=== PATIENT | female | born 1935 | race Caucasian/White ===

== ENCOUNTER 2021-07-28 10:51 | Inpatient (IN) ==
--- NOTE | 2021-07-28 11:14 | Emergency Department Note ---
Impression & Plan Acute GI bleeding, Anemia ED Provider Note NAME: MARIAM POLO AGE: 86 SEX: F : 1935 ARRIVES VIA: Ambulance INFORMANT: Patient, ED PROVIDER(S): Bob Head MD Chief Complaint: Abnormal blood work HPI: Patient does present from [facility] due to concern for abnormal blood work which is completed earlier today. Patient has a hemoglobin of 4. The patient states that she does not take any medications including blood thinners. The patient denies any falls or trauma. The patient has no abdominal pain. The patient does have mild frontal nonradiating headache but denies any recent falls numbness tingling or focal weakness. The patient denies any vomiting or rectal bleeding. The patient denies any dark stools. The patient denies any prior history of GI bleeding. Patient denies any nausea. Patient is unsure as to her Covid vaccination status. ROS: See HPI for pertinent positives and negatives. A total of 10 systems were reviewed and otherwise negative. Past medical history: See below Surgical history: See below Social history: See below Physical Exam: GENERAL: NAD, pale in appearance, non-toxic. EYE EXAM: Normal conjunctiva. PERRL, no anisocoria and EOM's grossly intact w/o pain. NECK: Supple, no nuchal rigidity, no adenopathy, non-tender. No signs of meningismus. LUNGS: Clear to auscultation. Normal chest wall mechanics. HEART: NSR, no MRG. ABDOMEN: Abdomen soft, non-tender, normo-active bowel sounds, no masses, no rebound or guarding. BACK: No CVA TTP. SKIN: No rashes and no bruising. UPPER EXTREMITIES: Upper extremities are grossly normal. Rectal: Scant heme positive stool, no bright red blood. No obvious fissures or hemorrhoids. LOWER EXTREMITIES: Grossly normal, no edema. NEURO EXAM: A&O x3, cranial nerves II-XII grossly intact, normal speech, moves all 4 extremities on command w/o issue. Differential diagnoses: Diverticulosis, AVM, coagulopathy, colitis, inflammatory bowel disease, malignancy, Kelly-Aguayo tear, esophagitis, peptic ulcer disease, variceal bleed, gastritis, epistaxis, fissure, hemorrhoids, as well as other pathologies. Course: Patient was seen and evaluated the bedside. Full history physical exam was performed. EKG interpreted by me Joann camp, rate of [address] changes, T wave inversion in lead III and aVF. Imaging Studies: See Below Cardiac monitoring: An order was placed for continuous cardiac monitoring. The monitor shows a rate of 72 with sinus rhythm. MDM: Patient did present from [facility]. Patient did not have any acute complaints but was referred here for lower hemoglobin. Patient was heme positive on exam. This is likely chronic and indolent nature given the patient's well compensated vital signs. Review of the patient's medication history she takes baby aspirin but no blood thinners. Patient was consented for blood and ordered 1 unit. I did speak with the on-call hospitalist and the patient was admitted to the medicine service. Was called by the monitor meter record clerk that there was concern the patient was in A. fib. EKG does confirm as such. Patient is otherwise asymptomatic. Critical Care: I have personally spent 42 minutes of critical care time in direct management of this patient. This includes bedside care, interpretation of diagnostic studies, and testing, discussion with consultants, patient, and family members, and other require inpatient management activities. This 42 minutes is in excess of all separately billable procedures. Past Med/Surg History Medical History GERD (gastroesophageal reflux disease) H/O: HTN (hypertension) HLD (hyperlipidemia) Surgical History No pertinent past surgical history Social History (Updated 07/28/21 @ 17:05 by Bob Head MD) Smoking Status: Former smoker Tobacco Type: Cigarettes Hx Alcohol Use: No Hx Substance Use: No Feels Safe at Home: Yes Allergies Allergies Allergy/AdvReac Type Severity Reaction Status Date / Time amlodipine Allergy Unknown Unverified 07/28/21 12:30 atorvastatin Allergy Unknown Unverified 07/28/21 12:30 codeine Allergy Unknown Unverified 07/28/21 12:30 nifedipine Allergy Unknown Unverified 07/28/21 12:30 Home Meds Home Medications Medication Instructions Recorded Confirmed aripiprazole 2 mg tablet 2 mg PO DAILY 07/28/21 07/28/21 aspirin 81 mg tablet,delayed 81 mg PO DAILY 07/28/21 07/28/21 release buspirone 10 mg tablet 10 mg PO TID 07/28/21 07/28/21 carvedilol 6.25 mg tablet 6.25 mg PO BID 07/28/21 07/28/21 citalopram 10 mg tablet 10 mg PO DAILY 07/28/21 07/28/21 cyanocobalamin (vitamin B-12) 500 500 mcg PO DAILY 07/28/21 07/28/21 mcg tablet (Vitamin B-12) furosemide 20 mg tablet 20 mg PO DAILY 07/28/21 07/28/21 isosorbide mononitrate 30 mg 30 mg PO DAILY 07/28/21 07/28/21 tablet,extended release 24 hr isosorbide mononitrate 60 mg 60 mg PO DAILY 07/28/21 07/28/21 tablet,extended release 24 hr omeprazole 20 mg capsule,delayed 20 mg PO DAILY 07/28/21 07/28/21 release quetiapine 25 mg tablet 25 mg PO HS 07/28/21 07/28/21 quetiapine 50 mg tablet 50 mg PO HS 07/28/21 07/28/21 rosuvastatin 10 mg tablet 10 mg PO HS 07/28/21 07/28/21 sennosides 8.6 mg tablet (senna) 17.2 mg PO DAILY 07/28/21 07/28/21 spironolactone 25 mg tablet 12.5 mg PO HS 07/28/21 07/28/21 Results & Data (ED) Vital Signs Vital Signs - 24 hr 07/28/21 11:00 07/28/21 11:11 07/28/21 11:48 Temperature 36.5 C Temperature Source Oral Pulse Rate [Right Finger] Pulse Rhythm [Right Finger] Respiratory Rate 18 Respiratory Effort / Characteristics Non-Labored Respiratory Depth Normal Blood Pressure [Right Arm] 122/42 L Blood Pressure Mean [Right Arm] 68 Pulse Oximetry 96 Oxygen Delivery Method Room Air Room Air Sepsis New/Unexplained Change in Mental Status No Sepsis Action Taken by Nursing No Action Required 07/28/21 12:02 Temperature Temperature Source Pulse Rate [Right Finger] 72 Pulse Rhythm [Right Finger] Regular Respiratory Rate 18 Respiratory Effort / Characteristics Non-Labored Respiratory Depth Normal Blood Pressure [Right Arm] 116/68 Blood Pressure Mean [Right Arm] 84 Pulse Oximetry 91 Oxygen Delivery Method Room Air Sepsis New/Unexplained Change in Mental Status Sepsis Action Taken by [facility] Medications Current Medication List: was personally reviewed by me Laboratory Data Attestation: I reviewed the patient's lab results. Patient's other lab results were completed earlier in the day not completed. The patient did have a hemoglobin of 4. Lab Results 07/28/21 07/28/21 07/28/21 Range/Units 04:11 11:31 11:34 PT 10.0 (9.0-12.0) Seconds INR 1.0 (0.9-1.1) APTT 23.4 (21.0-31.0) Seconds PTT Ratio 0.9 POC Stool Occult Blood Positive A (Negative) COVID-19 Eval Order SARS-CoV-2 (PCR) (Negative) Blood Type Blood Type Recheck O Positive Antibody Screen Crossmatch 07/28/21 07/28/21 07/28/21 Range/Units 11:42 11:42 11:53 PT (9.0-12.0) Seconds INR (0.9-1.1) APTT (21.0-31.0) Seconds PTT Ratio POC Stool Occult Blood (Negative) COVID-19 Eval Order Covid19 at [facility] SARS-CoV-2 (PCR) NEGATIVE (Negative) Blood Type O Positive Blood Type Recheck Antibody Screen NEGATIVE Crossmatch See Detail Administered Medications Pantoprazole Sodium 40 mg/ (Dextrose) 100 mls @ 20 mls/hr IV Q5H PETER Stop: 08/27/21 11:44 Last Admin: 07/28/21 12:50 Dose: 8 mg/hr, 20 mls/hr Documented by: [id number] Discontinued Medications Pantoprazole Sodium 80 mg/ (Dextrose) 120 mls @ 400 mls/hr IV NOW ONE Stop: 07/28/21 11:42 Last Infusion: 07/28/21 12:54 Dose: 0 mls/hr Documented by: [id number] Admin: 07/28/21 11:54 Dose: 400 mls/hr Documented by: [id number] Discharge Plan Visit Data Chief Complaint: Abnormal Labs/Diagnostic Testing ED Provider: Bob Head Discharge Problem: Acute GI bleeding, Anemia Patient Disposition: Admitted As Inpatient Discharge Instructions Interventions: ED Discharge Assessment Last Done: 07/28/21 15:00
[2021-07-28] MEDS ORDERED: SODIUM CHLORIDE 0.9% 250 ML IV PRN ×3 (11:23→19:58)
[2021-07-28] MEDS ORDERED: PANTOPRAZOLE BOLUS/DRIP 1 EA IV STA (11:25)
[2021-07-28] MEDS ORDERED: PANTOprazole 80 MG in DEXTROSE 5% 100 ML IV ONE (11:25)
[2021-07-28 12:12] LABS: Partial Thromboplastin Ratio 0.9; Partial Thromboplastin Time 23.4 Seconds (21.0-31.0)
[2021-07-28] MEDS: PANTOprazole 40 MG in DEXTROSE 5% 100 ML IV SCH ×3 (12:50→23:30)
--- NOTE | 2021-07-28 14:14 | CT Scan Report ---
CT head/brain wo con CLINICAL HISTORY: 86 years-old Female with fall. Acute head injury status post fall TECHNIQUE: Multiple axial CT images of the head were obtained without contrast. A dose lowering tech nique was utilized adhering to the principles of ALARA. COMPARISON: None. FINDINGS: No acute intracranial hemorrhage, midline shift, intracranial mass, hydrocephalus, territorial ischem ia or abnormal extra-axial collection. Age-related involutional changes. White matter hypodensities s uggestive of chronic microvascular ischemic disease. The calvarium is intact. Prior bilateral lens repair. The paranasal sinuses, mastoid air cells, and m iddle ear cavities are clear. IMPRESSION: No acute intracranial abnormality or calvarial fracture. ACT 112: Negative or not required by law. The above report was generated using voice recognition software. It may contain grammatical, syntax o r spelling errors. Electronically signed by: Srinivasan Montana M.D. 07/28/2021 2:12 PM
--- NOTE | 2021-07-28 14:34 | CT Scan Report ---
ABDOMEN AND PELVIS CT WITHOUT CONTRAST CT DOSE: 870.33 mGy.cm HISTORY: Acute generalized abdominal pain status post fall. Acute anemia. fall, anemia TECHNIQUE: Multiaxial CT images of the abdomen and pelvis were performed without contrast. A dose lo wering technique was utilized adhering to the principles of ALARA. COMPARISON STUDY: None. FINDINGS: Moderate cardiomegaly. Extensive coronary artery, mitral annular and aortic calcifications. Calcified granulomata of the lung bases. Bronchial wall thickening with bibasilar mucous plugging an d atelectasis. No pneumatosis or pneumoperitoneum. The unenhanced spleen is unremarkable with a calci fied granuloma. Unremarkable pancreas, gallbladder, adrenal glands and liver. 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 There is symmetric dilation of the urete rs and right greater than left renal pelves without vito hydronephrosis. Mild urinary bladder wall t hickening. Uterus is either atrophic or surgically absent. No adnexal mass lesions identified. No amber nopathy. Streak artifact from left hip arthroplasty limits evaluation of the pelvis. No bowel obstruction or bowel wall thickening. Moderate fecal retention. No ascites or mesenteric inf lammation. No CT evidence of acute appendicitis. Unremarkable soft tissues. There is a battery pack n oted within the right simultaneous gluteal tissues with stimulator lead extending through a right sac ral neural foramen. The lesion appears intact. No acute fracture identified. Degenerative changes of the spine, pelvis and hips. IMPRESSION: 1. No acute posttraumatic intra-abdominal or intrapelvic abnormality. 2. No bowel obstruction or bowel wall thickening. 3. Moderate fecal retention. 4. Mild symmetric dilation of the ureters is likely physiologic 5. Duplicated left renal collecting system. 6. No acute fracture. ACT 112: Negative or not required by law. The above report was generated using voice recognition software. It may contain grammatical, syntax o r spelling errors. Electronically signed by: Srinivasan Montana M.D. 07/28/2021 2:32 PM
[2021-07-28 14:43] LABS: Ferritin 2.9 ng/ml (8-388)
[2021-07-28 14:46] LABS: Reticulocyte % 2.5 % (0.5-2.0); Reticulocytes # 0.08 10^6/uL (0.02-0.10)
--- NOTE | 2021-07-28 15:49 | Gastrointestinal Consultation ---
Date of Consultation July 28, 2021 Assessment & Plan (1) Anemia: Iron deficiency anemia. Occult positive stool. No gross GI bleeding. Will try to contact family to obtain consent for EGD tomorrow. Agree with fluids/blood transfusions, PPI drip. Please keep NPO except clears today and NPO after midnight. Plan for EGD tomorrow. Supervising Physician Co-Signing Physician Notes Attg add: No overt events, responded appropriately to transfusion.. No need PPI gtt in absence of gross bleeding. Plan EGD tomorrow. History of Present Illness Reason for Consultation: Anemia Requesting Physician: Dr. Craig Attending Physician: Dr. Craig History of Present Illness Ms. Barbara Dumont is an 86 yr old female resident of the [facility] who was brought to [facility] ED today because OP labs showed a Hb of 4. She has had recent falls. At home she is on Omeprazole 20mg daily. She is on ASA 81mg daily but no on any other anticoagulants or antiplatelet meds. Unfortunately, she has some dementia (On aripiprazole). She is able to tell me that her name is Barbara but not able to tell me her last name or the year. She does not provide any meaningful hx. No PMH is available but she is on meds for HTN, dementia, hyperlipidemia, anxiety/depression. Allergies Allergy/AdvReac Type Severity Reaction Status Date / Time amlodipine Allergy Unknown Unverified 07/28/21 12:30 atorvastatin Allergy Unknown Unverified 07/28/21 12:30 codeine Allergy Unknown Unverified 07/28/21 12:30 nifedipine Allergy Unknown Unverified 07/28/21 12:30 Home Medications Medication Instructions Recorded Confirmed Type aripiprazole 2 mg tablet 2 mg PO DAILY 07/28/21 07/28/21 History aspirin 81 mg tablet,delayed 81 mg PO DAILY 07/28/21 07/28/21 History release buspirone 10 mg tablet 10 mg PO TID 07/28/21 07/28/21 History carvedilol 6.25 mg tablet 6.25 mg PO BID 07/28/21 07/28/21 History citalopram 10 mg tablet 10 mg PO DAILY 07/28/21 07/28/21 History cyanocobalamin (vitamin B-12) 500 500 mcg PO DAILY 07/28/21 07/28/21 History mcg tablet (Vitamin B-12) furosemide 20 mg tablet 20 mg PO DAILY 07/28/21 07/28/21 History isosorbide mononitrate 30 mg 30 mg PO DAILY 07/28/21 07/28/21 History tablet,extended release 24 hr isosorbide mononitrate 60 mg 60 mg PO DAILY 07/28/21 07/28/21 History tablet,extended release 24 hr omeprazole 20 mg capsule,delayed 20 mg PO DAILY 07/28/21 07/28/21 History release quetiapine 25 mg tablet 25 mg PO HS 07/28/21 07/28/21 History quetiapine 50 mg tablet 50 mg PO HS 07/28/21 07/28/21 History rosuvastatin 10 mg tablet 10 mg PO HS 07/28/21 07/28/21 History sennosides 8.6 mg tablet (senna) 17.2 mg PO DAILY 07/28/21 07/28/21 History spironolactone 25 mg tablet 12.5 mg PO HS 07/28/21 07/28/21 History Patient History Medical History Alzheimers disease ASCVD (arteriosclerotic cardiovascular disease) Chronic diastolic CHF (congestive heart failure) Depression Fibromyalgia GERD (gastroesophageal reflux disease) H/O: HTN (hypertension) HLD (hyperlipidemia) IBS (irritable bowel syndrome) Osteoporosis Paranoid personality disorder Surgical History No pertinent past surgical history Family History Other Family history unobtainable Social History Smoking Status: Former smoker Tobacco Type: Cigarettes Hx Alcohol Use: No Hx Substance Use: No Preferred Language: Mexican Communication Ability: Impaired Seal Mixer Required: No Beliefs That Will Affect Care: None Current Living Situation: Personal Care Facility Feels Safe at Home: Yes Assistive Devices: Walker and Wheelchair Review of Systems Review of Systems: Unable to obtain from the pt. Physical Exam Constitutional: well developed, + ill appearing, + thin and cooperative Eyes: PERRL, conjunctivae normal, anicteric sclerae Respiratory: normal respiratory effort, lungs clear to auscultation Cardiovascular: RRR, no murmur, no edema Gastrointestinal (Abdomen): normal bowel sounds, soft, nontender, no hepatosplenomegaly Skin: no rashes, warm and dry normal turgor and + pallor Neurologic: PERRL, EOMI, accommodation nl, no face palsy, no dysarthria awake Psychiatric: Orientation: alert, oriented to person and cooperative; + not oriented to place and + not oriented to time Eye Contact: good eye contact Affect: euthymic affect Results & Data ([facility]) Vital Signs (Past 12 Hours) Vital Signs Temp Pulse Pulse Resp BP BP Pulse Ox 07/28/21 14:55 36.8 C 107 H 20 111/74 96 07/28/21 14:40 36.4 C L 115 H 21 108/57 L 95 07/28/21 14:20 36.7 C 105 H 18 104/62 96 07/28/21 14:16 36.7 C 114 H 16 104/62 93 07/28/21 12:55 36.6 C 107 H 14 130/71 100 07/28/21 12:02 72 18 116/68 91 07/28/21 11:11 36.5 C 18 122/42 L 96 Laboratory Results WBC 3, Hb 4.6, Hct 17.6, INR 1, Na 139, K 4.4, Cl 107, CO2 23, BUN 40, Cr 1.52. Diagnostic Findings CTAP non contrast 07/28/21: 1. No acute posttraumatic intra-abdominal or intrapelvic abnormality. 2. No bowel obstruction or bowel wall thickening. 3. Moderate fecal retention. 4. Mild symmetric dilation of the ureters is likely physiologic 5. Duplicated left renal collecting system. 6. No acute fracture.
--- NOTE | 2021-07-28 16:47 | Electrocardiogram Report ---
Test Reason : Blood Pressure : / mmHG Vent. Rate : 103 BPM Atrial Rate : 300 BPM P-R Int : 000 ms QRS Dur : 094 ms QT Int : 352 ms P-R-T Axes : 000 071 -39 degrees QTc Int : 461 ms Atrial fibrillation with rapid ventricular response Cannot rule out Old Inferior infarct Nonspecific T wave abnormality Inferior leads Abnormal ECG No previous ECGs available Confirmed by Francisco Gomes [id number]) on 07/28/2021 4:47:21 PM Referred By: [facility] Confirmed By:Francisco Gomes
[2021-07-28] MEDS: busPIRone 5 MG TAB PO SCH ×2 (17:23→19:47)
--- NOTE | 2021-07-28 18:16 | History & Physical Report ---
Date of Service July 28, 2021 Assessment & Plan (1) Anemia: (2) Acute GI bleeding: Plan: -Admit to [facility] with telemetry -Patient presenting by referral for evaluation of anemia -Patient had an unwitnessed fall at her side yesterday. Head CT and CT ABD/pelvis unremarkable for acute findings. -Stool for Hemoccult positive in ED. Given patient's hemodynamic stability, suspect that anemia has been somewhat chronic. Very limited prior records available, patient did have a hospitalization at [facility] in 2017 for anemia and suspected GI bleeding however patient declined EGD evaluation at that time. -Transfuse 1 unit PRBC, checking H&H and likely will order an additional unit to be transfused. -S/p Protonix bolus and drip in ED, continue with IV PPI drip -Clear liquids, n.p.o. after midnight -GI consult, case discussed with JAY Castro (3) Atrial fibrillation: Plan: -EKG demonstrates atrial fibrillation, heart rate has been in the low 100s -Per review of limited records, there is a questionable history of atrial fibrillation -Patient currently not anticoagulated -will discontinue carvedilol 6.25 mg twice daily in favor of metoprolol 12.5 mg twice daily -Check echo -Cardiology consult, input appreciated (4) Chronic diastolic CHF (congestive heart failure): Plan: -Appears euvolemic -Holding diuretics in the setting of GI bleeding and anemia (5) Fibromyalgia: (6) Alzheimers disease: (7) Depression: (8) Paranoid personality disorder: Plan: -No acute issues, continue home meds (9) DVT prophylaxis: Plan: -SCDs due to anemia, GI bleeding Admission and Anticipated Discharge Date Admission Date: July 28, 2021 History of Present Illness Chief Complaint: Referred for evaluation of anemia Primary Care Provider: [facility] 86-year-old female with PMH Alzheimer's, chronic diastolic CHF, ASCVD, paranoid personality disorder, ?? History of atrial fibrillation, fibromyalgia, and other problems listed below who presents to the ED by referral for evaluation of anemia. Very limited records are available on the patient. Due to underlying Alzheimer's, history is limited from her as well. Apparently patient was found down in the hallway yesterday at [facility]. This was an unwitnessed fall. After the fall, patient reported feeling sluggish and not herself. Labs were obtained today that showed Hgb 4.6. Patient was for to the ED for further evaluation. No other symptoms or concerns reported by staff at [facility]. In the ED, patient is Hemoccult positive. She is in atrial fibrillation with heart rate in the 100s. Head CT, CT ABD/pelvis all unremarkable for acute findings. Patient was given Protonix bolus and started on a drip. She was also typed and crossed for 1 unit of blood. Allergies Allergy/AdvReac Type Severity Reaction Status Date / Time amlodipine Allergy Unknown Unverified 07/28/21 12:30 atorvastatin Allergy Unknown Unverified 07/28/21 12:30 codeine Allergy Unknown Unverified 07/28/21 12:30 nifedipine Allergy Unknown Unverified 07/28/21 12:30 Home Medications Medication Instructions Recorded Confirmed Type aripiprazole 2 mg tablet 2 mg PO DAILY 07/28/21 07/28/21 History aspirin 81 mg tablet,delayed 81 mg PO DAILY 07/28/21 07/28/21 History release buspirone 10 mg tablet 10 mg PO TID 07/28/21 07/28/21 History carvedilol 6.25 mg tablet 6.25 mg PO BID 07/28/21 07/28/21 History citalopram 10 mg tablet 10 mg PO DAILY 07/28/21 07/28/21 History cyanocobalamin (vitamin B-12) 500 500 mcg PO DAILY 07/28/21 07/28/21 History mcg tablet (Vitamin B-12) furosemide 20 mg tablet 20 mg PO DAILY 07/28/21 07/28/21 History isosorbide mononitrate 30 mg 30 mg PO DAILY 07/28/21 07/28/21 History tablet,extended release 24 hr isosorbide mononitrate 60 mg 60 mg PO DAILY 07/28/21 07/28/21 History tablet,extended release 24 hr omeprazole 20 mg capsule,delayed 20 mg PO DAILY 07/28/21 07/28/21 History release quetiapine 25 mg tablet 25 mg PO HS 07/28/21 07/28/21 History quetiapine 50 mg tablet 50 mg PO HS 07/28/21 07/28/21 History rosuvastatin 10 mg tablet 10 mg PO HS 07/28/21 07/28/21 History sennosides 8.6 mg tablet (senna) 17.2 mg PO DAILY 07/28/21 07/28/21 History spironolactone 25 mg tablet 12.5 mg PO HS 07/28/21 07/28/21 History Past Med/Surg History Medical History Alzheimers disease ASCVD (arteriosclerotic cardiovascular disease) Chronic diastolic CHF (congestive heart failure) Depression Fibromyalgia GERD (gastroesophageal reflux disease) H/O: HTN (hypertension) HLD (hyperlipidemia) IBS (irritable bowel syndrome) Osteoporosis Paranoid personality disorder Surgical History No pertinent past surgical history Family History Other Family history unobtainable Social History Smoking Status: Former smoker Tobacco Type: Cigarettes Hx Alcohol Use: No Hx Substance Use: No Preferred Language: Macedonian Communication Ability: Impaired Trans Router Required: No Beliefs That Will Affect Care: None Current Living Situation: Personal Care Facility Feels Safe at Home: Yes Assistive Devices: Walker Review of Systems Review of Systems: Unobtainable due to cognitive status Physical Exam Constitutional: WD/WN, vitals as above Eyes: PERRL, conjunctivae normal, anicteric sclerae ENMT: external ear and nose normal, oropharynx normal Respiratory: normal respiratory effort, lungs clear to auscultation Cardiovascular: Rate/Rhythm: + tachycardic and + irregularly irregular Vessels: normal peripheral pulses Extremities: no edema Gastrointestinal (Abdomen): normal bowel sounds, soft, nontender, no hepatosplenomegaly Musculoskeletal: no cyanosis or clubbing, extremities motor strength 5/5 Skin: no rashes, warm and dry Neurologic: PERRL, EOMI, accommodation nl, no face palsy, no dysarthria Psychiatric: Orientation: alert, oriented to person, oriented to place and cooperative; + not oriented to time Cognition: + recent memory not intact Insight: + limited insight Results & Data Results & Data ([place]) Vital Signs (Past 12 Hours) Vital Signs Temp Pulse Pulse Resp BP BP BP 07/28/21 17:05 37.0 C 129 H 12 124/68 07/28/21 16:59 37.0 C 129 H 12 124/68 07/28/21 16:38 36.9 C 119 H 18 104/79 07/28/21 14:55 36.8 C 107 H 20 111/74 07/28/21 14:40 36.4 C L 115 H 21 108/57 L 07/28/21 14:20 36.7 C 105 H 18 104/62 07/28/21 14:16 36.7 C 114 H 16 104/62 07/28/21 12:55 36.6 C 107 H 14 130/71 07/28/21 12:02 72 18 116/68 07/28/21 11:11 36.5 C 18 122/42 L Pulse Ox 07/28/21 17:05 07/28/21 16:59 92 07/28/21 16:38 98 07/28/21 14:55 96 07/28/21 14:40 95 07/28/21 14:20 96 07/28/21 14:16 93 07/28/21 12:55 100 07/28/21 12:02 91 07/28/21 11:11 96 Laboratory Results Short CBC 07/28/21 07/28/21 Range/Units 04:11 11:53 Blood Type O Positive Blood Type Recheck O Positive Antibody Screen NEGATIVE Crossmatch See Detail Diagnostic Findings Abdomen/Pelvis CT 07/28/21 13:[address] WITHOUT CONTRAST CT DOSE: 870.33 mGy.cm HISTORY: Acute generalized abdominal pain status post fall. Acute anemia. fall, anemia TECHNIQUE: Multiaxial CT images of the abdomen and pelvis were performed without contrast. A dose lowering technique was utilized adhering to the principles of ALARA. COMPARISON STUDY: None. FINDINGS: Moderate cardiomegaly. Extensive coronary artery, mitral annular and aortic calcifications. Calcified granulomata of the lung bases. Bronchial wall thickening with bibasilar mucous plugging and atelectasis. No pneumatosis or pneumoperitoneum. The unenhanced spleen is unremarkable with a calcified granuloma. Unremarkable pancreas, gallbladder, adrenal glands and liver. 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 There is symmetric dilation of the ureters and right greater than left renal pelves without vito hydronephrosis. Mild urinary bladder wall thickening. Uterus is either atrophic or surgically absent. No adnexal mass lesions identified. No adenopathy. Streak artifact from left hip arthroplasty limits evaluation of the pelvis. No bowel obstruction or bowel wall thickening. Moderate fecal retention. No ascites or mesenteric inflammation. No CT evidence of acute appendicitis. Unremarkable soft tissues. There is a battery pack noted within the right simultaneous gluteal tissues with stimulator lead extending through a right sacral neural foramen. The lesion appears intact. No acute fracture identified. Degenerative changes of the spine, pelvis and hips. IMPRESSION: 1. No acute posttraumatic intra-abdominal or intrapelvic abnormality. 2. No bowel obstruction or bowel wall thickening. 3. Moderate fecal retention. 4. Mild symmetric dilation of the ureters is likely physiologic 5. Duplicated left renal collecting system. 6. No acute fracture. ACT 112: Negative or not required by law. The above report was generated using voice recognition software. It may contain grammatical, syntax or spelling errors. Electronically signed by: Srinivasan Montana M.D. 07/28/2021 2:[address] 07/28/21 13:22 CT head/brain wo con CLINICAL HISTORY: 86 years-old Female with fall. Acute head injury status post fall TECHNIQUE: Multiple axial CT images of the head were obtained without contrast. A dose lowering technique was utilized adhering to the principles of ALARA. COMPARISON: None. FINDINGS: No acute intracranial hemorrhage, midline shift, intracranial mass, hydrocephalus, territorial ischemia or abnormal extra-axial collection. Age- related involutional changes. White matter hypodensities suggestive of chronic microvascular ischemic disease. The calvarium is intact. Prior bilateral lens repair. The paranasal sinuses, mastoid air cells, and middle ear cavities are clear. IMPRESSION: No acute intracranial abnormality or calvarial fracture. ACT 112: Negative or not required by law. The above report was generated using voice recognition software. It may contain grammatical, syntax or spelling errors. Electronically signed by: Srinivasan Montana M.D. 07/28/2021 2:12 PM Code Status & VTE Plan Code Status Patient is a DNR as per POLST form. VTE Prophylaxis Plan VTE Prophylaxis will be ordered: Yes Supervising Physician Co-Signing Physician Notes Pt seen and examined by me, care coordinated with Ladarius THOMPSON, pls refer to her note above for further detail. 86 y/o female with Alzheimer's, chronic diastolic CHF, ASCVD, paranoid personality disorder, questionable hx of atrial fibrillation, fibromyalgia, who presents for evaluation of anemia. Patient was found down in the hallway yesterday at [facility]. This was an unwitnessed fall. After the fall, patient reported feeling sluggish and not herself. Labs were obtained today that showed Hgb 4.6. Currently pt is laying in bed in NAD. She appears comfortable and has no complaints however due to dementia can not provide any hx and does not remember falling either. Denies any chest pain, palpitations, shortness of breath, headache, abdominal pain. She is awake but not oriented. Lungs are CTAB, + tachycardia low 100s. Abdomen soft nontender, nondistended, + bowel sounds. Pt moves extremities. Speech is fluent, there is no facial asymmetry. Skin is warm and dry. In the ED, patient is Hemoccult positive. She is in atrial fibrillation with heart rate in the 100s. Head CT, CT ABD/pelvis all unremarkable for acute findings. Patient was given Protonix bolus and started on a drip. She was also typed and crossed for 1 unit of blood. Close hemodynamic monitoring. GI notified, plan for EGD. Will need further review of any hx of Afib. Joann Craig MD (1) Anemia Anemia type: unspecified type Qualified Code(s): D64.9 - Anemia, unspecified
[2021-07-28 18:50] LABS: Hematocrit (blood only) 25.4 % (37-47)
[2021-07-28] MEDS ORDERED: OLANZapine 10 MG/2.1 ML SDV IM STA ×2 (19:31→23:25)
[2021-07-28] MEDS: ROSUVASTATIN CALCIUM 10 MG TAB PO SCH (19:47)
[2021-07-28] MEDS: QUEtiapine FUMARATE 25 MG TABLET PO SCH ×2 (19:47)
[2021-07-28] MEDS: METOPROLOL TARTRATE 25 MG TAB PO SCH (19:48)
[2021-07-28] MEDS: ACETAMINOPHEN 325 MG TAB PO PRN (20:43)
[2021-07-28] MEDS ORDERED: OLANZapine 10 MG/2.1 ML SDV IM ONE (23:26)
[2021-07-29] MEDS: PANTOprazole 40 MG in DEXTROSE 5% 100 ML IV SCH ×5 (04:09→23:41)
[2021-07-29 07:58] LABS: Hematocrit (blood only) 28.2 % (37-47); Hemoglobin 8.3 g/dL (12.0-16.0); Mean Corpuscular Hgb Conc 29.4 g/dL (32-36); Mean Corpuscular Volume 71.4 fL (80-100); Platelet Count 199 K/uL (130-400); RDW Coefficient of Variation 22.4 % (11.5-14.5); RDW Standard Deviation 58.3 fL (36.4-46.3); Red Blood Count 3.95 M/uL (4.2-5.4); White Blood Count 4.53 K/uL (4.8-10.8)
[2021-07-29 08:30] LABS: BUN Creatinine Ratio 21.5 (10-20); Blood Urea Nitrogen 28 mg/dl (7-18); Calcium 8.9 mg/dl (8.5-10.1); Carbon Dioxide 23 mmol/L (21-32); Chloride 110 mmol/L (98-107); Est GFR (Non-African American) 36.3 ml/min; Glucose 88 mg/dl (70-99); Potassium 3.7 mmol/L (3.5-5.1); Sodium 142 mmol/L (136-145)
--- NOTE | 2021-07-29 08:36 | Gastroenterology Progress Note ---
Date of Service July 29, 2021 Assessment & Plan (1) Anemia: Plan: Iron deficiency anemia. Occult positive stool. No gross GI bleeding. Spoke with Grand daughter, VIDA who agrees to go forward with EGD. Due to scheduling/and pt not actively bleeding, the EGD was rescheduled for tomorrow, Granddaughter Nataly: [phone] aware and understanding. May have full liquids today, NPO after midnight. Admission and Anticipated Discharge Date Admission Date: July 28, 2021 Supervising Physician Co-Signing Physician Notes Attg add: I interviewed and examined pt, reviewed chart and labs. Pt admit with iron def anemia. Unable to provide history, but denies any GI symptoms. BP normal, BUN increased on admit. On low dose ASA o.w no antiplt therapy/anticoag, on PPI. CT without contrast without explanation for anemia. Plan EGD tomorrow, consider CT with oral contrast if EGD negative to rule out LGI malignancy. Subjective 86 yr old female transferred from [facility] for anemia. (iron deficiency, no gross bleeding but occult +) Labs: Hb 4.6 + 2 units -> 8.3 today. A-fib yesterday afternoon with rate to 130's - rate controlled since 8PM. Apparently has a hx of A fib as well as Alzheimer's, chronic diastolic CHF, ASCVD, paranoid personality disorder, fibromyalgia. Review of Systems Review of Systems: Unable to obtain from the pt. Physical Exam Constitutional: well developed, + ill appearing, + thin and cooperative Eyes: PERRL, conjunctivae normal, anicteric sclerae Respiratory: normal respiratory effort, lungs clear to auscultation Cardiovascular: RRR, no murmur, no edema Gastrointestinal (Abdomen): normal bowel sounds, soft, nontender, no hepatosplenomegaly Skin: no rashes, warm and dry normal turgor and + pallor Neurologic: PERRL, EOMI, accommodation nl, no face palsy, no dysarthria awake Psychiatric: Orientation: alert, oriented to person and cooperative; + not oriented to place and + not oriented to time Eye Contact: good eye contact Affect: euthymic affect Results & Data ([facility]) Vital Signs (Past 12 Hours) Vital Signs Temp Pulse Pulse Resp BP BP Pulse Ox 07/29/21 07:12 36.9 C 62 18 133/62 93 07/29/21 01:11 36.4 C L 62 18 103/44 L 92 07/29/21 01:03 73 07/29/21 01:02 83 07/29/21 00:30 36.2 C L 65 18 132/53 L 97 07/28/21 23:30 65 152/53 H 07/28/21 23:00 36.8 C 65 16 123/60 07/28/21 22:45 36.8 C 65 18 100/66 07/28/21 22:24 36.5 C 66 18 119/47 L 98 Laboratory Results WBC 4.5, Hb 8.3, Hct 28, plts 199, Na 142, K 3.7, Cl 110 Co23, BUN 28, Cr 1.3. Diagnostic Findings CTAP non contrast 07/28/21: 1. No acute posttraumatic intra-abdominal or intrapelvic abnormality. 2. No bowel obstruction or bowel wall thickening. 3. Moderate fecal retention. 4. Mild symmetric dilation of the ureters is likely physiologic 5. Duplicated left renal collecting system. 6. No acute fracture.
--- NOTE | 2021-07-29 09:04 | Cardiology Consultation ---
Date of Consultation July 29, 2021 Assessment & Plan (1) Atrial fibrillation: (2) Paranoid personality disorder: (3) Depression: (4) Alzheimers disease: (5) Fibromyalgia: (6) ASCVD (arteriosclerotic cardiovascular disease): (7) Chronic diastolic CHF (congestive heart failure): (8) Acute GI bleeding: (9) Anemia: (10) Mitral regurgitation: (11) Preop cardiovascular exam: She presents with profound anemia and incidentally discovered atrial fibrillation, rate controlled. There is no chart history of atrial fibrillation previously. She does have severe mitral regurgitation which is likely significantly contributing factor and would make cardioversion to sinus rhythm very difficult. Obviously, she is not an anticoagulation candidate at this time given her profound anemia. She does have a history of CAD but is asymptomatic from a cardiac standpoint so would maintain hemoglobin greater than 7. She is already rate controlled so no AV giovanna blocking agents will be added at this time In terms of her preprocedural risk assessment I would place her as a high risk for any adverse perioperative cardiovascular event with the risk approximately greater than 5%. No further cardiac testing or intervention would further lower this risk. I see no reason to delay from a cardiac standpoint. History of Present Illness Reason for Consultation: Atrial fibrillation Requesting Physician: Dr. Craig Attending Physician: Erasto Craig MD History of Present Illness It was my pleasure to see Mrs. Dumont and cardiac consultation today July 29, 2021. She is a very pleasant yet significantly demented 86-year-old woman who is not previously known to our cardiology practice. She was sent to [facility] emergency department on 07/28/2021 after outpatient laboratory studies revealed a hemoglobin of 4. She is significantly demented and not able to contribute to her history. History obtained through review of medical records. Currently she states that she feels tired but otherwise well at rest and denies any chest pain, shortness of breath, palpitations, lightheadedness or dizziness. Allergies Allergy/AdvReac Type Severity Reaction Status Date / Time amlodipine Allergy Unknown Unverified 07/28/21 12:30 atorvastatin Allergy Unknown Unverified 07/28/21 12:30 codeine Allergy Unknown Unverified 07/28/21 12:30 nifedipine Allergy Unknown Unverified 07/28/21 12:30 Home Medications Medication Instructions Recorded Confirmed Type aripiprazole 2 mg tablet 2 mg PO DAILY 07/28/21 07/28/21 History aspirin 81 mg tablet,delayed 81 mg PO DAILY 07/28/21 07/28/21 History release buspirone 10 mg tablet 10 mg PO TID 07/28/21 07/28/21 History carvedilol 6.25 mg tablet 6.25 mg PO BID 07/28/21 07/28/21 History citalopram 10 mg tablet 10 mg PO DAILY 07/28/21 07/28/21 History cyanocobalamin (vitamin B-12) 500 500 mcg PO DAILY 07/28/21 07/28/21 History mcg tablet (Vitamin B-12) furosemide 20 mg tablet 20 mg PO DAILY 07/28/21 07/28/21 History isosorbide mononitrate 30 mg 30 mg PO DAILY 07/28/21 07/28/21 History tablet,extended release 24 hr isosorbide mononitrate 60 mg 60 mg PO DAILY 07/28/21 07/28/21 History tablet,extended release 24 hr omeprazole 20 mg capsule,delayed 20 mg PO DAILY 07/28/21 07/28/21 History release quetiapine 25 mg tablet 25 mg PO HS 07/28/21 07/28/21 History quetiapine 50 mg tablet 50 mg PO HS 07/28/21 07/28/21 History rosuvastatin 10 mg tablet 10 mg PO HS 07/28/21 07/28/21 History sennosides 8.6 mg tablet (senna) 17.2 mg PO DAILY 07/28/21 07/28/21 History spironolactone 25 mg tablet 12.5 mg PO HS 07/28/21 07/28/21 History Patient History Medical History Alzheimers disease ASCVD (arteriosclerotic cardiovascular disease) Chronic diastolic CHF (congestive heart failure) Depression Fibromyalgia GERD (gastroesophageal reflux disease) H/O: HTN (hypertension) HLD (hyperlipidemia) IBS (irritable bowel syndrome) Osteoporosis Paranoid personality disorder Surgical History No pertinent past surgical history Family History Other Family history unobtainable Social History Smoking Status: Former smoker Tobacco Type: Cigarettes Do You Dip or Chew Tobacco: No; Hx Alcohol Use: No Hx Substance Use: No Preferred Language: Uzbek [employer] Underwriter Required: No Beliefs That Will Affect Care: None Current Living Situation: Personal Care Facility Feels Safe at Home: Yes Safety Concerns: Feels Safe At This Time Assistive Devices: Walker Review of Systems Review of Systems: Unobtainable due to mental health condition Physical Exam Physical Exam: General: Awake, alert and oriented x 3. No acute distress. HEENT: Normocephalic, atraumatic. Pupils equal, round and reactive to light and accommodation. Extraocular muscles are intact. Anicteric sclera. Moist mucous membranes. Neck: No JVD. No bruit. Cardiovascular: irregularly irregular, unable to appreciate murmur, rub or gallop. Pulmonary: Clear to auscultation bilaterally. No rales, rhonchi, or wheezing. Abdomen: Bowel sounds x 4, soft. No rebound, guarding or tenderness. No organomegaly. Extremities: No clubbing, cyanosis or edema. +2 pedal pulses bilaterally. Skin: Warm and dry. Results & Data ([facility]) Vital Signs (Past 12 Hours) Vital Signs Temp Pulse Pulse Resp BP BP Pulse Ox 07/29/21 08:54 63 07/29/21 07:12 36.9 C 62 18 133/62 93 07/29/21 01:11 36.4 C L 62 18 103/44 L 92 07/29/21 01:03 73 07/29/21 01:02 83 07/29/21 00:30 36.2 C L 65 18 132/53 L 97 07/28/21 23:30 65 152/53 H 07/28/21 23:00 36.8 C 65 16 123/60 07/28/21 22:45 36.8 C 65 18 100/66 07/28/21 22:24 36.5 C 66 18 119/47 L 98 (1) Anemia Anemia type: unspecified type Qualified Code(s): D64.9 - Anemia, unspecified
[2021-07-29] MEDS: CITALOPRAM 20 MG TAB PO SCH (10:22)
[2021-07-29] MEDS: METOPROLOL TARTRATE 25 MG TAB PO SCH ×2 (10:22→22:09)
[2021-07-29] MEDS: busPIRone 5 MG TAB PO SCH ×3 (10:22→22:09)
[2021-07-29] MEDS: ARIPIprazole 1 MG/ML ORAL SOLN 150 ML BTL PO SCH (10:22)
[2021-07-29] MEDS: ISOSORBIDE MONO EXTENDED REL 30 MG TABCR PO SCH (10:22)
[2021-07-29] MEDS: ISOSORBIDE MONO EXTENDED REL 60 MG TABCR PO SCH (10:22)
[2021-07-29] MEDS: ROSUVASTATIN CALCIUM 10 MG TAB PO SCH (22:10)
[2021-07-29] MEDS: QUEtiapine FUMARATE 25 MG TABLET PO SCH ×2 (22:10)
[2021-07-30] MEDS: PANTOprazole 40 MG in DEXTROSE 5% 100 ML IV SCH ×4 (03:15→20:37)
--- NOTE | 2021-07-30 08:05 | Hospitalist Progress Note ---
Date of Service July 29, 2021 Assessment & Plan (1) Anemia: (2) Acute GI bleeding: Plan: -Admitted to [facility] with telemetry -Patient presenting by referral for evaluation of anemia, Hgb 4.6 -Patient had an unwitnessed fall at [facility]. Head CT and CT ABD/pelvis unremarkable for acute findings. -Stool for Hemoccult positive in ED. Given patient's hemodynamic stability, suspect that anemia has been somewhat chronic. Very limited prior records available, patient did have a hospitalization at [facility] in 2017 for anemia and suspected GI bleeding however patient declined EGD evaluation at that time. -Transfuse 1 unit PRBC, checking H&H and likely will order an additional unit to be transfused. -S/p Protonix bolus and drip in ED, continued with IV PPI drip initially, can stop -Clear liquids, n.p.o. after midnight -GI consulted, case discussed with JAY Castro, plan for EGD tomorrow (07/30) (3) Atrial fibrillation: Plan: -EKG demonstrates atrial fibrillation, heart rate has been in the low 100s -Per review of limited records, there is a questionable history of atrial fibrillation -Patient currently not anticoagulated -will discontinue carvedilol 6.25 mg twice daily in favor of metoprolol 12.5 mg twice daily -Echo ordered -Cardiology consulted, input appreciated - pt has severe mitral regurg. , can not be anticoagulated d/t bleed. Afib seems to be new. -cont. to closely monitor (4) Chronic diastolic CHF (congestive heart failure): Plan: -Appears euvolemic -Holding diuretics in the setting of GI bleeding and anemia (5) Fibromyalgia: (6) Alzheimers disease: (7) Depression: (8) Paranoid personality disorder: Plan: -No acute issues, continue home meds (9) DVT prophylaxis: Plan: -SCDs due to anemia, GI bleeding Admission and Anticipated Discharge Date Admission Date: July 28, 2021 Subjective Pt seen in follow up of anemia/ GI bleed, new onset Afib Currently sitting up in bed, eating (liquid diet), in NAD Pt is awake and pleasant however not oriented and not able to provide any history She is comfortable and has no complaints 1:1 sitter present at the bedside as pt was somewhat agitated at night Review of Systems Review of Systems: Unobtainable due to cognitive status Physical Exam Physical Exam: Constitutional:L elderly frail F in NAD Eyes: PERRL, EOMI, conju nctivae normal, an icteric sclerae ENMT: external ear and n ose normal, oropha rynx normal Respiratory: normal respiratory effort, lungs holly ar to auscultation Cardiovascular:L Rate/Rhythm:+ irre gularly irregular Extremities: no e christiano Gastrointestinal ( Abdomen): normal bowel sound s, soft, nontender Musculoskeletal: extremities motor strength 5/5 Skin: no rashes, warm an d dry Neurologic: PERRL, EOMI, no fa ce palsy, no dysar thria Psychiatric: Awake, alert and c ooperative but not oriented, not abl e to provide hx I nsight: + limited insight (1) Anemia Anemia type: unspecified type Qualified Code(s): D64.9 - Anemia, unspecified
[2021-07-30] MEDS: ARIPIprazole 1 MG/ML ORAL SOLN 150 ML BTL PO SCH (08:26)
[2021-07-30] MEDS: METOPROLOL TARTRATE 25 MG TAB PO SCH ×2 (08:26→19:59)
[2021-07-30] MEDS: CITALOPRAM 20 MG TAB PO SCH (08:27)
[2021-07-30] MEDS: ISOSORBIDE MONO EXTENDED REL 60 MG TABCR PO SCH (08:28)
[2021-07-30] MEDS: busPIRone 5 MG TAB PO SCH ×3 (08:28→19:59)
[2021-07-30] MEDS: ISOSORBIDE MONO EXTENDED REL 30 MG TABCR PO SCH (08:29)
[2021-07-30 08:30] LABS: Blood Urea Nitrogen 20 mg/dl (7-18); Calcium 8.8 mg/dl (8.5-10.1); Carbon Dioxide 23 mmol/L (21-32); Chloride 110 mmol/L (98-107); Est GFR (African American) 51.9 ml/min; Est GFR (Non-African American) 44.8 ml/min; Glucose 95 mg/dl (70-99); Potassium 3.9 mmol/L (3.5-5.1); Sodium 142 mmol/L (136-145)
[2021-07-30 08:45] LABS: Hematocrit (blood only) 28.6 % (37-47); Hemoglobin 8.2 g/dL (12.0-16.0)
--- NOTE | 2021-07-30 11:56 | Gastroenterology Progress Note ---
Date of Service July 30, 2021 Assessment & Plan (1) Anemia: Plan: Iron deficiency anemia. Occult positive stool. No gross GI bleeding. Will try to contact family to obtain consent for EGD tomorrow. Agree with fluids/blood transfusions, PPI drip. Please keep NPO except clears today and NPO after midnight. Plan for EGD tomorrow. Plan: Appreciate primary hospitalists management of fluids/blood resuscitation. EGD ? today vs tomorrow based on Anesthesia decision regarding having had pills in applesauce? Further recommendations to follow EGD. Admission and Anticipated Discharge Date Admission Date: July 28, 2021 Supervising Physician Co-Signing Physician Notes attg add: I interviewed and examined pt, reviewed chart and labs. Pt with stable hgb, plan EGD today. Subjective 86 y/o female with Alzheimer's, chronic diastolic CHF, ASCVD, paranoid personality disorder, questionable hx of atrial fibrillation, fibromyalgia. No events over night. Hb stable at 8.2 post 2 unit RBC transfusion (4.6 on arrival here on 07/28). No gross GI bleeding. Seems comfortable. Per anesthesia - not doing EGD because pt ate (? pudding). Spoke with the pt's nurse, she had called the PCP asking if morning meds should be given, told to give meds. Gave the meds in 1/2 teaspoon of applesauce. Tells me strict NPO otherwise. Review of Systems Review of Systems: Unable to obtain from the pt. Physical Exam Constitutional: well developed, + ill appearing, + thin and cooperative Eyes: PERRL, conjunctivae normal, anicteric sclerae Respiratory: normal respiratory effort, lungs clear to auscultation Cardiovascular: RRR, no murmur, no edema Gastrointestinal (Abdomen): normal bowel sounds, soft, nontender, no hepatosplenomegaly Skin: no rashes, warm and dry normal turgor and + pallor Neurologic: PERRL, EOMI, accommodation nl, no face palsy, no dysarthria awake Psychiatric: Orientation: alert, oriented to person and cooperative; + not oriented to place and + not oriented to time Eye Contact: good eye contact Affect: euthymic affect Results & Data ([facility]) Vital Signs (Past 12 Hours) Vital Signs Temp Pulse Pulse Resp BP Pulse Ox 07/30/21 09:11 67 07/30/21 07:46 67 07/30/21 07:28 36.6 C 59 L 16 124/53 L 92 07/30/21 05:35 57 L 07/30/21 00:12 37.0 C 68 18 142/78 H 96 Laboratory Results Hb 8.2, Hct 28.6, Na 142, K 3.9, Cl 110, CO2 23, BUN 20, Cr 1.10, glucose 95. Diagnostic Findings Non contrast CTAP 07/28/21: 1. No acute posttraumatic intra-abdominal or intrapelvic abnormality. 2. No bowel obstruction or bowel wall thickening. 3. Moderate fecal retention. 4. Mild symmetric dilation of the ureters is likely physiologic 5. Duplicated left renal collecting system. 6. No acute fracture.
[2021-07-30] MEDS ORDERED: ATROPINE SULFATE 0.1 MG/ML 10ML SYR IV PRN (14:21)
[2021-07-30] MEDS ORDERED: ePHEDrine sulfate 50 MG/ML AMP IV PRN (14:21)
--- NOTE | 2021-07-30 14:21 | Anesthesiology Consultation ---
Date of Service July 30, 2021 Assessment & Plan Chart Review Chart Review: Acceptable Risk for Surgery and Patient NOT seen in Pre Admission Testing Consults Requested none ASA ASA4 Proposed Anesthesia Anesthesia Type: MAC Risk / Benefits Reviewed With: PT / POA / Parent / Guardian, Accepts Plan and Informed Consent Obtained Additional Comments: covid test negative History Surgery Operation Date: 07/29/21 17:30 Proposed Procedures p Esophagogastroduodenoscopy Dr Caitlin Payne MD Operation Date: 07/30/21 16:30 Proposed Procedures p Esophagogastroduodenoscopy Dr Caitlin Payne MD Height/Weight Height: 5 ft Weight: 60 kg Allergies Allergy/AdvReac Type Severity Reaction Status Date / Time amlodipine Allergy Unknown Unverified 07/28/21 12:30 atorvastatin Allergy Unknown Unverified 07/28/21 12:30 codeine Allergy Unknown Unverified 07/28/21 12:30 nifedipine Allergy Unknown Unverified 07/28/21 12:30 Medications Home Medications Medication Instructions Recorded Confirmed Last Taken aripiprazole 2 mg tablet 2 mg PO DAILY 07/28/21 07/28/21 07/28/21 aspirin 81 mg tablet,delayed 81 mg PO DAILY 07/28/21 07/28/21 07/28/21 release buspirone 10 mg tablet 10 mg PO TID 07/28/21 07/28/21 07/28/21 09:00 carvedilol 6.25 mg tablet 6.25 mg PO BID 07/28/21 07/28/21 07/27/21 citalopram 10 mg tablet 10 mg PO DAILY 07/28/21 07/28/21 07/28/21 cyanocobalamin (vitamin B-12) 500 500 mcg PO DAILY 07/28/21 07/28/21 07/28/21 mcg tablet (Vitamin B-12) furosemide 20 mg tablet 20 mg PO DAILY 07/28/21 07/28/21 07/28/21 isosorbide mononitrate 30 mg 30 mg PO DAILY 07/28/21 07/28/21 07/27/21 tablet,extended release 24 hr isosorbide mononitrate 60 mg 60 mg PO DAILY 07/28/21 07/28/21 07/27/21 tablet,extended release 24 hr omeprazole 20 mg capsule,delayed 20 mg PO DAILY 07/28/21 07/28/21 07/28/21 release quetiapine 25 mg tablet 25 mg PO HS 07/28/21 07/28/21 07/27/21 quetiapine 50 mg tablet 50 mg PO HS 07/28/21 07/28/21 07/27/21 rosuvastatin 10 mg tablet 10 mg PO HS 07/28/21 07/28/21 07/27/21 sennosides 8.6 mg tablet (senna) 17.2 mg PO DAILY 07/28/21 07/28/21 07/28/21 spironolactone 25 mg tablet 12.5 mg PO HS 07/28/21 07/28/21 07/27/21 Active Medications Generic Name Dose Route Start Last Admin Trade Name Freq PRN Reason Stop Dose Admin Acetaminophen 650 mg 07/28/21 16:35 07/28/21 20:43 Acetaminophen 325 Mg Tab PO 08/27/21 16:34 650 mg Q4H PRN Administration pain/fever Aripiprazole 2 mg 07/29/21 09:00 07/30/21 08:26 Aripiprazole 1 Mg/Ml Oral Soln 150 Ml Btl PO 08/28/21 08:59 2 mg DAILY PETER Administration Buspirone HCl 10 mg 07/28/21 16:35 07/30/21 08:28 Buspirone 5 Mg Tab PO 08/27/21 16:34 10 mg TID PETER Administration Citalopram Hydrobromide 10 mg 07/29/21 09:00 07/30/21 08:27 Citalopram 20 Mg Tab PO 08/28/21 08:59 10 mg DAILY PETER Administration Pantoprazole Sodium 40 mg/ 100 mls @ 20 mls/hr 07/28/21 11:45 07/30/21 13:02 Dextrose IV 08/27/21 11:44 8 mg/hr Q5H PETER 20 mls/hr Administration 8 MG/HR Isosorbide Mononitrate 30 mg 07/29/21 09:00 07/30/21 08:29 Isosorbide [place] Extended Rel 30 Mg Tabcr PO 08/28/21 08:59 30 mg DAILY PETER Administration Isosorbide Mononitrate 60 mg 07/29/21 09:00 07/30/21 08:28 Isosorbide [place] Extended Rel 60 Mg Tabcr PO 08/28/21 08:59 60 mg DAILY PETER Administration Metoprolol Tartrate 12.5 mg 07/28/21 21:00 07/30/21 08:26 Metoprolol Tartrate 25 Mg Tab PO 08/27/21 20:59 12.5 mg BID PETER Administration Quetiapine Fumarate 25 mg 07/28/21 21:00 07/29/21 22:10 Quetiapine Fumarate 25 Mg Tablet PO 08/27/21 20:59 25 mg HS PETER Administration Quetiapine Fumarate 50 mg 07/28/21 21:00 07/29/21 22:10 Quetiapine Fumarate 25 Mg Tablet PO 08/27/21 20:59 50 mg HS PETER Administration Rosuvastatin Calcium 10 mg 07/28/21 21:00 07/29/21 22:10 Rosuvastatin Calcium 10 Mg Tab PO 08/27/21 20:59 10 mg HS PETER Administration NPO Date Last Intake of Fluids: 07/30/21 Time Last Intake of Fluids: 08:30 Last Intake of Fluids Comment: pils w/ spoonful of pudding Date Last Intake of Solids: 07/30/21 Time Last Intake of Solids: 08:30 Past Medical History Medical History Alzheimers disease ASCVD (arteriosclerotic cardiovascular disease) Chronic diastolic CHF (congestive heart failure) Depression Fibromyalgia GERD (gastroesophageal reflux disease) H/O: HTN (hypertension) HLD (hyperlipidemia) IBS (irritable bowel syndrome) Osteoporosis Paranoid personality disorder Exercise / Class Metabolic Activity III < 4 Walking/Shop/Light housework Past Family History Family History Other Family history unobtainable Past Surgical History Surgical History No pertinent past surgical history Past Anesthesia History No Hx of Anesthesia Complications and No Family Hx of Anesthesia Complications History of PONV No Hx of PONV and No Hx of Motion Sickness Social History Smoking Status: Former smoker Do You Dip or Chew Tobacco: No Hx Alcohol Use: No Hx Substance Use: No Physical Exam Vital Signs Last Vital Signs Temp 36.3 C L 07/30/21 14:03 Pulse 60 07/30/21 14:03 Resp 16 07/30/21 14:03 BP 132/54 L 07/30/21 14:03 Pulse Ox 95 07/30/21 14:03 Constitutional + cachectic ENMT Mouth: + dentition abnormality, + edentulous and + poor dentition Thyromental Distance: < 3.5 Finger Breadths Mallampati Class: II Neck normal visual inspection and trachea midline; neck extension not limited Respiratory normal respiratory effort Auscultation: + diminished lung sounds Cardiovascular Rate/Rhythm: regular rhythm (irreg.); + abnormal rate (irreg.) Heart Sounds: no murmur Vessels: no carotid bruit Musculoskeletal Spine: normal cervical ROM Extremities: extremities normal to inspection Neurologic moves all extremities Motor/Sensory: no sensory deficit Psychiatric Orientation: alert and oriented x 3 Testing Laboratory Results 07/30/21 08:02 07/30/21 08:02 PT 10.0 Seconds (9.0-12.0) 07/28/21 11:34 INR 1.0 (0.9-1.1) 07/28/21 11:34 APTT 23.4 Seconds (21.0-31.0) 07/28/21 11:34 Blood Type O Positive 07/28/21 11:53 Antibody Screen NEGATIVE 07/28/21 11:53
[2021-07-30] MEDS ORDERED: PROPOFOL IV EMULSION 10 MG/ML 20 ML VIAL IV ONE (15:04)
[2021-07-30] MEDS ORDERED: PHENYLEPHRINE 100MCG/ML 5ML SYR ONE (15:04)
[2021-07-30] MEDS ORDERED: LIDOCAINE 2% 2 ML VIAL/AMP(20MG/ML) INFIL ONE (15:04)
--- NOTE | 2021-07-30 15:04 | GI REPORT ---
Patient Name: Barbara Dumont Procedure Date: 07/30/2021 2:28 PM Date of : 1935 Admit Type: Inpatient Age: 86 Gender: Female Attending MD: Phuong Payne MD Procedure: Upper GI endoscopy Providers: Phuong Payne MD Referring MD: Josephine Santo Indications: Iron deficiency anemia Medicines: See the Anesthesia note for documentation of the administered medications Complications: No immediate complications. Estimated Blood Loss: Estimated blood loss: none. Procedure: Pre-Anesthesia Assessment: - ASA Grade Assessment: IV - A patient with severe systemic disease that is a constant threat to life. After obtaining informed consent, the endoscope was passed under direct vision. Throughout the procedure, the patient's blood pressure, pulse, and oxygen saturations were monitored continuously. The Endoscope was introduced through the mouth, and advanced to the second part of duodenum. The upper GI endoscopy was accomplished without difficulty. The patient tolerated the procedure well. Findings: The Z-line was found 36 cm from the incisors. A hiatal hernia was present. The gastroesophageal flap valve was visualized endoscopically and classified as Hill Grade IV (no fold, wide open lumen, hiatal hernia present). Single small erosion in antrum, otherwise normal stomach. 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 Second small non bleeding AVM in D2, ablated using APC at standard settings. Clip placed on this site. Recommendation: - Discharge patient to floor. - Discussed the possibility of a colonoscopy with her granddaughter/guardian. Given her age and comorbid dementia, would defer this -- I spoke to her guardian abt this, who agrees. Will request contrast CT of abd/pelvis to rule otu any gross pathology, including mass. If CT abnormal, will need cscopy. Phuong Payne M.D. Phuong Payne MD 07/30/2021 3:03:44 PM This report has been signed electronically. Note Initiated On: 07/30/2021 2:28 PM Number of Addenda: 0 I attest to the content of the Intraoperative Record and orders documented therein, exceptions below {[id number]}
--- NOTE | 2021-07-30 15:05 | Anesthesiology Progress Note ---
Date of Service July 30, 2021 Anesthesia Post Procedure Vital Signs Vital Signs: Temp Pulse Pulse Resp BP BP Pulse Ox 07/30/21 14:03 36.3 C L 60 16 132/54 L 95 07/30/21 09:11 67 07/30/21 07:46 67 07/30/21 07:28 36.6 C 59 L 16 124/53 L 92 07/30/21 05:35 57 L 07/30/21 00:12 37.0 C 68 18 142/78 H 96 07/29/21 19:48 37.0 C 71 18 125/50 L 97 07/29/21 16:27 36.8 C 79 18 112/61 97 07/29/21 15:28 67 Pain Intensity Head: Pain Intensity: 0 Transfer of Care Handoff Completed per policy Notes Mental Status: alert / awake / arousable Patient Amnestic to Procedure: Yes Nausea / Vomiting: adequately controlled Pain: adequately controlled Airway Patency, RR, SpO2: stable & adequate BP & HR: stable & adequate Hydration State: stable & adequate Anesthetic Complications: no major complications apparent
--- NOTE | 2021-07-30 17:29 | Hospitalist Progress Note ---
Date of Service July 30, 2021 Assessment & Plan (1) Anemia: (2) Acute GI bleeding: Plan: Acute GI bleeding Patient presented by referral for evaluation of anemia, Hgb 4.6 -S/P EGD: Hiatal hernia. Single small erosion in antrum. 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 Second small nonbleeding AVM in D2, ablated, clip placed. -CT ABD to r/o malignancy pending -S/P 2 units PRBC Hb: 4.6> 8.2 Appreciate GI input Continue PPI Monitor H&H No plan for colonoscopy currently given age, comorbid conditions and dementia Acute blood loss anemia Iron deficiency anemia Give IV Venofer Start on oral iron supplements as able Unwitnessed fall at [facility] head:No acute intracranial abnormality or calvarial fracture. PT OT Fall precautions (3) Atrial fibrillation: Plan: -EKG demonstrates atrial fibrillation, heart rate has been in the low 100s -Per review of limited records, there is a questionable history of atrial fibrillation -Not a candidate for anticoagulated -carvedilol was changed to metoprolol 12.5 mg twice daily -Echo ordered -Cardiology consulted, input appreciated -Severe mitral regurgitation likely contributing factor for afib (4) Chronic diastolic CHF (congestive heart failure): Plan: -Appears euvolemic -Resume diuretics as able (5) Fibromyalgia: (6) Alzheimers disease: (7) Depression: (8) Paranoid personality disorder: Plan: -No acute issues, continue home meds (9) DVT prophylaxis: Plan: -SCDs due to anemia, GI bleeding Admission and Anticipated Discharge Date Admission Date: July 28, 2021 Subjective Patient is seen and examined at bedside States having mild generalized abdominal discomfort Had EGD earlier today Poor historian Denies any nausea, vomiting, chest pain, dyspnea Review of Systems Review of Systems: All systems reviewed & are unremarkable except as noted in Subjective Physical Exam Physical Exam: Physical Exam: Vitals signs as noted above General Appearance:Moderately built and nourished, no apparent distress Head: normocephalic, Atraumatic Eyes: normal inspection, EOMI Neck: supple, Trachea midline Respiratory/Chest: Normal breath sounds, CTA, No accessory muscle use Cardiovascular: Irregularly irregular, No murmur Abdomen/GI:Soft, Non tender, mild distention, Bowel sounds present Extremities/Musculoskeletal:normal inspection, no edema Neurologic/Psych: grossly no focal neurological deficits, + poor insight Skin: normal color, warm Results & Data Results & Data ([facility]) Vital Signs (Past 12 Hours) Vital Signs Temp Pulse Pulse Resp BP BP Pulse Ox 07/30/21 15:29 105 H 18 119/54 L 98 07/30/21 15:15 69 18 105/65 98 07/30/21 15:01 72 16 106/52 L 98 07/30/21 14:03 36.3 C L 60 16 132/54 L 95 07/30/21 09:11 67 07/30/21 07:46 67 07/30/21 07:28 36.6 C 59 L 16 124/53 L 92 07/30/21 05:35 57 L Laboratory Results Short CBC 07/30/21 Range/Units 08:02 Hgb 8.2 L (12.0-16.0) g/dL Hct 28.6 L (37-47) % BMP 07/30/21 08:02 Sodium 142 Potassium 3.9 Chloride 110 H Carbon Dioxide 23 BUN 20 H Creatinine 1.10 Glucose 95 Calcium 8.8 (1) Anemia Anemia type: unspecified type Qualified Code(s): D64.9 - Anemia, unspecified
[2021-07-30] MEDS ORDERED: IRON SUCROSE 200 MG in 0.9 % SODIUM CHLORIDE 100 ML IV ONE (17:30)
[2021-07-30] MEDS ORDERED: OPTIRAY 320 100ml IV ONE (17:43)
[2021-07-30] MEDS: QUEtiapine FUMARATE 25 MG TABLET PO SCH ×2 (19:59)
[2021-07-30] MEDS: ROSUVASTATIN CALCIUM 10 MG TAB PO SCH (20:01)
--- NOTE | 2021-07-30 20:23 | CT Scan Report ---
CT abd pelvis oral and IV con CLINICAL HISTORY: anemia; r/o occult abdomen/pelvis malignancy TECHNIQUE: Helical axial images of the abdomen and pelvis were obtained and displayed. Automated dose lowering techniques and/or adjustment according to patient size were utilized for this exam. This e xam was performed with intravenous contrast. COMPARISON: Comparison is made to CT abdomen pelvis 07/28/2021 FINDINGS: Lower chest: Cardiomegaly is partially visualized. Bibasilar atelectasis is seen. Liver: Unremarkable. No focal lesions are seen. Gallbladder and biliary tree: No calcified gallstones. Normal caliber wall. No intra- or extrahepatic biliary ductal dilation. Pancreas: Unremarkable, no focal lesions. Spleen: Unremarkable. Adrenals: Unremarkable. Kidneys and ureters: Bilateral pelviectasis is seen. Bladder: Unremarkable. Reproductive organs: Unremarkable. Bowel: Unremarkable. Lymph nodes Retroperitoneal: Unremarkable. Mesenteric: Unremarkable. Pelvic: Unremarkable. Peritoneum: Normal Vessels: Atherosclerotic calcifications are seen. Abdominal wall: Unremarkable. Bones: Left total hip arthroplasty is seen. Neurostimulator is noted with the battery pack in the rig ht gluteal soft tissues. IMPRESSION: No acute abnormality is seen, in particular there is no evidence of hematoma or malignancy. ACT 112: Negative or not required by law. Electronically signed by: Joseph Kinney M.D. 07/30/2021 8:21 PM
[2021-07-30 21:39] LABS: Hematocrit (blood only) 32.4 % (37-47); Hemoglobin 9.2 g/dL (12.0-16.0)
[2021-07-30] MEDS ORDERED: OLANZapine 10 MG/2.1 ML SDV IM PRN (23:44)
[2021-07-31] MEDS: PANTOprazole 40 MG in DEXTROSE 5% 100 ML IV SCH ×2 (00:13→04:45)
[2021-07-31 07:44] LABS: BUN Creatinine Ratio 12.6 (10-20); Calcium 9.1 mg/dl (8.5-10.1); Creatinine Clr Calc Pharmacy 29.4 ml/min; Est GFR (African American) 52.5 ml/min; Est GFR (Non-African American) 45.3 ml/min; Magnesium 2.2 mg/dl (1.8-2.4); Potassium 3.6 mmol/L (3.5-5.1)
[2021-07-31 08:04] LABS: Hematocrit (blood only) 29.7 % (37-47); Hemoglobin 8.6 g/dL (12.0-16.0); Mean Corpuscular Hemoglobin 20.4 pg (25-34); Mean Corpuscular Volume 70.4 fL (80-100); Platelet Count 184 K/uL (130-400); Red Blood Count 4.22 M/uL (4.2-5.4); White Blood Count 4.23 K/uL (4.8-10.8)
[2021-07-31] MEDS ORDERED: IRON SUCROSE 200 MG in 0.9 % SODIUM CHLORIDE 100 ML IV ONE (08:30)
[2021-07-31] MEDS: METOPROLOL TARTRATE 25 MG TAB PO SCH ×2 (08:44→20:01)
[2021-07-31] MEDS: busPIRone 5 MG TAB PO SCH ×3 (08:44→19:59)
[2021-07-31] MEDS: ISOSORBIDE MONO EXTENDED REL 60 MG TABCR PO SCH (08:44)
[2021-07-31] MEDS: ISOSORBIDE MONO EXTENDED REL 30 MG TABCR PO SCH (08:45)
[2021-07-31] MEDS: CITALOPRAM 20 MG TAB PO SCH (08:45)
[2021-07-31] MEDS: ARIPIprazole 1 MG/ML ORAL SOLN 150 ML BTL PO SCH (08:45)
--- NOTE | 2021-07-31 09:39 | Cardiology Progress Note ---
Date of Service July 31, 2021 Assessment & Plan (1) Atrial fibrillation: (2) Paranoid personality disorder: (3) Depression: (4) Alzheimers disease: (5) Fibromyalgia: (6) ASCVD (arteriosclerotic cardiovascular disease): (7) Chronic diastolic CHF (congestive heart failure): (8) Acute GI bleeding: (9) Anemia: (10) Mitral regurgitation: (11) Preop cardiovascular exam: Plan: She presents with profound anemia and incidentally discovered atrial fibrillatio n, rate controlled. There is no chart history of atrial fibrillation previously. She does have severe mitral regurgitation which is likely significantly contributing factor and would make cardioversion to sinus rhythm very difficult. Obviously, she is not an anticoagulation candidate at this time given her profound anemia. She does have a history of CAD but is asymptomatic from a cardiac standpoint so would maintain hemoglobin greater than 7. Continue low-dose metoprolol. May consider changing to metoprolol succinate 25 mg p.o. daily upon discharge. No further cardiac testing intervention necessary at this time. Okay to DC telemetry or back to [facility] from a cardiac standpoint. Admission and Anticipated Discharge Date Admission Date: July 28, 2021 Subjective Patient seen and examined, chart reviewed. Lethargic this morning but responding appropriately. Denies any cardiac complaints of chest pain, shortness of breath, palpitations, lightheadedness, dizziness or syncope. Telemetry reviewed: Atrial fibrillation rate controlled. Review of Systems Review of Systems: Unobtainable due to mental health condition Physical Exam Physical Exam: General: Awake, alert and oriented to self. No acute distress. HEENT: Normocephalic, atraumatic. Pupils equal, round and reactive to light a nd accommodation. Extraocular muscles are intact. Anicteric sclera. Moist mucous membranes. Neck: No JVD. No bruit. Cardiovascular: irregularly irregular, unable to appreciate murmur, rub or gal lop. Pulmonary: Clear to auscultation bilaterally. No rales, rhonchi, or wheezing. Abdomen: Bowel sounds x 4, soft. No rebound, guarding or tenderness. No organomegaly. Extremities: No clubbing, cyanosis or edema. +2 pedal pulses bilaterally. Skin: Warm and dry. Results & Data ([facility]) Vital Signs (Past 12 Hours) Vital Signs Temp Pulse Pulse Resp BP BP Pulse Ox 07/31/21 04:04 37.1 C 76 18 140/56 L 94 07/31/21 00:02 72 07/30/21 23:00 37.1 C 75 18 156/71 H 95 (1) Anemia Anemia type: unspecified type Qualified Code(s): D64.9 - Anemia, unspecified
[2021-07-31] MEDS: PANTOprazole 40 MG TAB PO SCH (09:50)
--- NOTE | 2021-07-31 11:45 | Communication Note ---
Date of Service: July 31, 2021 86 yr old female with dementia, A-fib. Admitted 07/28 with iron deficiency anemia, Hb 4. + 2 units RBCs -> Hb 8.6. EGD yesterday with non bleedingAVMs - treated. CT without obvious pathology,but little contrast in the colon. Appreciate primary services management of fluids/blood/iron infusions. Attg add: I interviewed and examined pt, reviewed chart and labs. Defer colonoscopy due to age, comorbids. This plan was discussed with family/guardian, who agrees with deferring colonoscopy. They understand the possibility that anemia may be related to occult malignancy. OK to restart ASA in 3 days. She may be a high risk for recurrent bleeding if begun on anti-coag for afib - will defer to primary service. GI will sign off. Pt should have frequent monitoring of CBC by PCP as outpt. No need for GI followup, but please reconsult if anemia recurs and if family wishes to pursue scope.
[2021-07-31 15:01] LABS: Hematocrit (blood only) 31.9 % (37-47); Hemoglobin 9.3 g/dL (12.0-16.0)
--- NOTE | 2021-07-31 19:51 | Hospitalist Progress Note ---
Date of Service July 31, 2021 Assessment & Plan (1) Anemia: (2) Acute GI bleeding: Plan: Acute GI bleeding Patient presented by referral for evaluation of anemia, Hgb 4.6 -S/P EGD: Hiatal hernia. Single small erosion in antrum. 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 Second small nonbleeding AVM in D2, ablated, clip placed. -CT ABD to r/o malignancy pending -S/P 2 units PRBC GI bleed likely secondary to AVMs; iron deficiency anemia contributing as well Defer colonoscopy due to age, comorbidities--family/guardian agrees with the plan as per GI Can not rule out occult malignancy Hb: 4.6> 8.2>9.3 Appreciate GI input Continue PPI Monitor H&H Okay to resume aspirin in 3 days Continue current management Acute blood loss anemia Iron deficiency anemia Give IV Venofer Start on Iron supplements Unwitnessed fall at [facility] CT head:No acute intracranial abnormality or calvarial fracture. PT OT Fall precautions (3) Atrial fibrillation: Plan: -EKG demonstrates atrial fibrillation, heart rate has been in the low 100s -Per review of limited records, there is a questionable history of atrial fibrillation -Not a candidate for anticoagulated -carvedilol was changed to metoprolol 12.5 mg twice daily -Echo reviewed Plan to change to metoprolol succinate 25 mg daily upon discharge -Cardiology consulted, input appreciated -Severe mitral regurgitation likely contributing factor for afib (4) Chronic diastolic CHF (congestive heart failure): Plan: -Appears euvolemic -Resume diuretics as able (5) Fibromyalgia: (6) Alzheimers disease: (7) Depression: (8) Paranoid personality disorder: Plan: -No acute issues, continue home meds (9) DVT prophylaxis: Plan: -SCDs due to anemia, GI bleeding Admission and Anticipated Discharge Date Admission Date: July 28, 2021 Subjective Patient is seen and examined at bedside No recurrence of bleeding issues today Poor historian Discussed with GI, cardiology today Denies any nausea, vomiting, chest pain, dyspnea, abd pain Review of Systems Review of Systems: All systems reviewed & are unremarkable except as noted in Subjective Physical Exam Physical Exam: Physical Exam: Vitals signs as noted above General Appearance:Moderately built and nourished, no apparent distress Head: normocephalic, Atraumatic Eyes: normal inspection, EOMI Neck: supple, Trachea midline Respiratory/Chest: Normal breath sounds, CTA, No accessory muscle use Cardiovascular: Irregularly irregular, No murmur Abdomen/GI:Soft, Non tender, mild distention, Bowel sounds present Extremities/Musculoskeletal:normal inspection, no edema Neurologic/Psych: grossly no focal neurological deficits, + poor insight Skin: normal color, warm Results & Data Results & Data ([facility]) Vital Signs (Past 12 Hours) Vital Signs Temp Pulse Pulse Resp BP Pulse Ox 07/31/21 18:26 37.3 C 79 17 129/66 90 07/31/21 15:10 37.0 C 82 20 114/69 100 07/31/21 15:00 95 H 07/31/21 11:07 37.2 C 72 20 146/72 H 95 07/31/21 09:00 74 Laboratory Results Short CBC 07/30/21 07/31/21 07/31/21 Range/Units 20:24 06:55 14:50 WBC 4.23 L (4.8-10.8) K/uL Hgb 9.2 L 8.6 L 9.3 L (12.0-16.0) g/dL Hct 32.4 L 29.7 L 31.9 L (37-47) % Plt Count 184 (130-400) K/uL [facility] 07/31/21 06:55 Sodium 137 Potassium 3.6 Chloride 107 Carbon Dioxide 25 BUN 14 Creatinine 1.09 Glucose 97 Calcium 9.1 (1) Anemia Anemia type: unspecified type Qualified Code(s): D64.9 - Anemia, unspecified
[2021-07-31] MEDS: ROSUVASTATIN CALCIUM 10 MG TAB PO SCH (20:00)
[2021-07-31] MEDS: QUEtiapine FUMARATE 25 MG TABLET PO SCH ×2 (20:00)
[2021-07-31 22:13] LABS: Appearance Urine Cloudy (Clear); Bilirubin Urine Negative (Negative); Blood Urine 1+ (Negative); Color Urine Yellow; Glucose Urine UA Negative (Negative); Ketones Urine Negative (Negative); Leukocyte Esterase Urine 3+ (Negative); Nitrite Urine Negative (Negative); Protein Urine Negative (Negative); Specific Gravity Urine 1.005 (1.000-1.030); Urobilinogen Urine Negative (Negative); pH Urine 6.5 (4.5-7.5)
[2021-07-31 22:25] LABS: Bacteria Urine Automated 2+ (Negative); WBC Urine Automated >30 /hpf (0-5)
[2021-08-01 07:02] LABS: Hematocrit (blood only) 29.9 % (37-47); Hemoglobin 9.1 g/dL (12.0-16.0); Mean Corpuscular Hemoglobin 21.7 pg (25-34); Mean Corpuscular Hgb Conc 30.4 g/dL (32-36); Mean Corpuscular Volume 71.2 fL (80-100); Platelet Count 187 K/uL (130-400); RDW Coefficient of Variation 23.7 % (11.5-14.5); RDW Standard Deviation 60.3 fL (36.4-46.3); White Blood Count 4.17 K/uL (4.8-10.8)
[2021-08-01 07:39] LABS: BUN Creatinine Ratio 11.4 (10-20); Calcium 8.9 mg/dl (8.5-10.1); Creatinine Clr Calc Pharmacy 29.1 ml/min; Est GFR (African American) 51.9 ml/min; Est GFR (Non-African American) 44.8 ml/min; Potassium 3.6 mmol/L (3.5-5.1)
[2021-08-01] MEDS: CITALOPRAM 20 MG TAB PO SCH (08:40)
[2021-08-01] MEDS: METOPROLOL TARTRATE 25 MG TAB PO SCH ×2 (08:40→21:58)
[2021-08-01] MEDS: ISOSORBIDE MONO EXTENDED REL 30 MG TABCR PO SCH (08:40)
[2021-08-01] MEDS: ISOSORBIDE MONO EXTENDED REL 60 MG TABCR PO SCH (08:41)
[2021-08-01] MEDS: PANTOprazole 40 MG TAB PO SCH (08:41)
[2021-08-01] MEDS: busPIRone 5 MG TAB PO SCH ×3 (08:41→21:54)
[2021-08-01] MEDS: ARIPIprazole 1 MG/ML ORAL SOLN 150 ML BTL PO SCH (08:41)
[2021-08-01] MEDS: FERROUS SULFATE 325 MG TAB PO SCH (08:44)
[2021-08-01] MEDS: DEXTROSE 5% IV SCH (12:46)
[2021-08-01] MEDS: CEFTRIAXONE SODIUM IV SCH (12:46)
[2021-08-01] MEDS: ACETAMINOPHEN 325 MG TAB PO PRN (16:58)
--- NOTE | 2021-08-01 18:21 | Hospitalist Progress Note ---
Date of Service August 01, 2021 Assessment & Plan (1) Anemia: (2) Acute GI bleeding: Plan: Acute GI bleeding Patient presented by referral for evaluation of anemia, Hgb 4.6 -S/P EGD: Hiatal hernia. Single small erosion in antrum. 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 Second small nonbleeding AVM in D2, ablated, clip placed. -CT ABD to r/o malignancy pending -S/P 2 units PRBC GI bleed likely secondary to AVMs; iron deficiency anemia contributing as well Defer colonoscopy due to age, comorbidities--family/guardian agrees with the plan as per GI Can not rule out occult malignancy Hb: 4.6> 8.2>9.1 Appreciate GI input Continue PPI Monitor H&H Okay to resume aspirin in 3 days as per GI Urinary tract infection Urine culture growing gram-negative bacilli Continue Rocephin Acute blood loss anemia Iron deficiency anemia Give IV Venofer Started on Iron supplements Unwitnessed fall at [facility] CT head:No acute intracranial abnormality or calvarial fracture. PT OT Fall precautions (3) Atrial fibrillation: Plan: -EKG demonstrates atrial fibrillation, heart rate has been in the low 100s -Per review of limited records, there is a questionable history of atrial fibrillation -Not a candidate for anticoagulated -carvedilol was changed to metoprolol 12.5 mg twice daily -Echo reviewed Plan to change to metoprolol succinate 25 mg daily upon discharge -Cardiology consulted, input appreciated -Severe mitral regurgitation likely contributing factor for afib (4) Chronic diastolic CHF (congestive heart failure): Plan: -Appears euvolemic -Resume diuretics as able (5) Fibromyalgia: (6) Alzheimers disease: (7) Depression: (8) Paranoid personality disorder: Plan: -No acute issues, continue home meds (9) DVT prophylaxis: Plan: -SCDs due to anemia, GI bleeding Admission and Anticipated Discharge Date Admission Date: July 28, 2021 Subjective Patient is seen and examined at bedside Poor historian No bleeding issues as per RN Hemoglobin stable Urine analysis suggestive of possible UTI No distress on exam Denies any nausea, vomiting, chest pain, dyspnea, abd pain Review of Systems Review of Systems: All systems reviewed & are unremarkable except as noted in Subjective Physical Exam Physical Exam: Physical Exam: Vitals signs as noted above General Appearance:Moderately built and nourished, no apparent distress Head: normocephalic, Atraumatic Eyes: normal inspection, EOMI Neck: supple, Trachea midline Respiratory/Chest: Normal breath sounds, CTA, No accessory muscle use Cardiovascular: Irregularly irregular, No murmur Abdomen/GI:Soft, Non tender, mild distention, Bowel sounds present Extremities/Musculoskeletal:normal inspection, no edema Neurologic/Psych: grossly no focal neurological deficits, + poor insight Skin: normal color, warm Results & Data Results & Data ([facility]) Vital Signs (Past 12 Hours) Vital Signs Temp Pulse Resp BP Pulse Ox 08/01/21 17:44 38.3 C H 08/01/21 14:42 38.5 C H 93 H 17 159/66 H 92 08/01/21 07:45 36.6 C 65 16 145/68 H 95 Laboratory Results Short CBC 08/01/21 Range/Units 06:30 WBC 4.17 L (4.8-10.8) K/uL Hgb 9.1 L (12.0-16.0) g/dL Hct 29.9 L (37-47) % Plt Count 187 (130-400) K/uL BMP 08/01/21 06:30 Sodium 141 Potassium 3.6 Chloride 110 H Carbon Dioxide 22 BUN 13 Creatinine 1.10 Glucose 89 Calcium 8.9 Urine 07/31/21 Range/Units Unknown Urine Color Yellow Urine Appearance Cloudy A (Clear) Urine pH 6.5 (4.5-7.5) Ur Specific [place] 1.005 (1.000-1.030) Urine Protein Negative (Negative) Urine Glucose (UA) Negative (Negative) (1) Anemia Anemia type: unspecified type Qualified Code(s): D64.9 - Anemia, unspecified
[2021-08-01] MEDS: QUEtiapine FUMARATE 25 MG TABLET PO SCH ×2 (21:52→21:53)
[2021-08-01] MEDS: ROSUVASTATIN CALCIUM 10 MG TAB PO SCH (21:53)
[2021-08-02 06:44] LABS: Hematocrit (blood only) 28.7 % (37-47); Hemoglobin 8.3 g/dL (12.0-16.0)
[2021-08-02] MEDS: PANTOprazole 40 MG TAB PO SCH (09:12)
[2021-08-02] MEDS: ARIPIprazole 1 MG/ML ORAL SOLN 150 ML BTL PO SCH (09:12)
[2021-08-02] MEDS: CITALOPRAM 20 MG TAB PO SCH (09:12)
[2021-08-02] MEDS: ISOSORBIDE MONO EXTENDED REL 60 MG TABCR PO SCH (09:12)
[2021-08-02] MEDS: FERROUS SULFATE 325 MG TAB PO SCH (09:12)
[2021-08-02] MEDS: METOPROLOL TARTRATE 25 MG TAB PO SCH ×2 (09:12→20:09)
[2021-08-02] MEDS: busPIRone 5 MG TAB PO SCH ×3 (09:13→20:10)
[2021-08-02] MEDS: ISOSORBIDE MONO EXTENDED REL 30 MG TABCR PO SCH (09:13)
[2021-08-02] MEDS: DEXTROSE 5% IV SCH (12:13)
[2021-08-02] MEDS: CEFTRIAXONE SODIUM IV SCH (12:13)
[2021-08-02] MEDS: ROSUVASTATIN CALCIUM 10 MG TAB PO SCH (20:08)
[2021-08-02] MEDS: QUEtiapine FUMARATE 25 MG TABLET PO SCH ×2 (20:09)
--- NOTE | 2021-08-02 21:20 | Hospitalist Progress Note ---
Date of Service August 02, 2021 Assessment & Plan (1) Anemia: (2) Acute GI bleeding: Plan: Acute GI bleeding Patient presented by referral for evaluation of anemia, Hgb 4.6 -S/P EGD: Hiatal hernia. Single small erosion in antrum. 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 Second small nonbleeding AVM in D2, ablated, clip placed. -CT ABD to r/o malignancy pending -S/P 2 units PRBC GI bleed likely secondary to AVMs; iron deficiency anemia contributing as well Defer colonoscopy due to age, comorbidities--family/guardian agrees with the plan as per GI Can not rule out occult malignancy Hb: 4.6> 8.2>9.1>8.3 Appreciate GI input Continue PPI Monitor H&H Okay to resume aspirin in 3 days as per GI Continue current management Urinary tract infection Urine culture growing E. coli Continue Rocephin Acute blood loss anemia Iron deficiency anemia Give IV Venofer Started on Iron supplements Unwitnessed fall at [facility] CT head:No acute intracranial abnormality or calvarial fracture. PT OT Fall precautions (3) Atrial fibrillation: Plan: -EKG demonstrates atrial fibrillation, heart rate has been in the low 100s -Per review of limited records, there is a questionable history of atrial fibrillation -Not a candidate for anticoagulated -carvedilol was changed to metoprolol 12.5 mg twice daily -Echo reviewed Plan to change to metoprolol succinate 25 mg daily upon discharge -Cardiology consulted, input appreciated -Severe mitral regurgitation likely contributing factor for afib (4) Chronic diastolic CHF (congestive heart failure): Plan: -Appears euvolemic -Resume diuretics (5) Fibromyalgia: (6) Alzheimers disease: (7) Depression: (8) Paranoid personality disorder: Plan: -No acute issues, continue home meds (9) DVT prophylaxis: Plan: -SCDs due to anemia, GI bleeding Admission and Anticipated Discharge Date Admission Date: July 28, 2021 Subjective Patient is seen and examined at bedside Poor historian No significant change clinically from yesterday Hb 8.3 today No distress on exam Denies any nausea, vomiting, chest pain, dyspnea, abd pain Review of Systems Review of Systems: All systems reviewed & are unremarkable except as noted in Subjective Physical Exam Physical Exam: Physical Exam: Vitals signs as noted above General Appearance:Moderately built and nourished, no apparent distress Head: normocephalic, Atraumatic Eyes: normal inspection, EOMI Neck: supple, Trachea midline Respiratory/Chest: Normal breath sounds, CTA, No accessory muscle use Cardiovascular: Irregularly irregular, No murmur Abdomen/GI:Soft, Non tender, mild distention, Bowel sounds present Extremities/Musculoskeletal:normal inspection, no edema Neurologic/Psych: grossly no focal neurological deficits, + poor insight Skin: normal color, warm Results & Data Results & Data ([facility]) Vital Signs (Past 12 Hours) Vital Signs Temp Pulse Resp BP Pulse Ox 08/02/21 16:36 37.4 C 85 18 135/64 91 Laboratory Results Short CBC 08/02/21 Range/Units 05:38 Hgb 8.3 L (12.0-16.0) g/dL Hct 28.7 L (37-47) % (1) Anemia Anemia type: unspecified type Qualified Code(s): D64.9 - Anemia, unspecified
[2021-08-03 07:37] LABS: Hemoglobin 8.3 g/dL (12.0-16.0)
[2021-08-03] MEDS: ARIPIprazole 1 MG/ML ORAL SOLN 150 ML BTL PO SCH (08:39)
[2021-08-03] MEDS: METOPROLOL TARTRATE 25 MG TAB PO SCH (08:39)
[2021-08-03] MEDS: busPIRone 5 MG TAB PO SCH (08:39)
[2021-08-03] MEDS: ISOSORBIDE MONO EXTENDED REL 30 MG TABCR PO SCH (08:40)
[2021-08-03] MEDS: PANTOprazole 40 MG TAB PO SCH (08:40)
[2021-08-03] MEDS: FERROUS SULFATE 325 MG TAB PO SCH (08:40)
[2021-08-03] MEDS: CITALOPRAM 20 MG TAB PO SCH (08:40)
[2021-08-03] MEDS: ISOSORBIDE MONO EXTENDED REL 60 MG TABCR PO SCH (08:40)
[2021-08-03] MEDS ORDERED: FUROSEMIDE 20 MG TAB PO SCH (09:00)
[2021-08-03] MEDS ORDERED: cefTRIAXone SODIUM 1,000 MG in DEXTROSE 5% 50 ML IV SCH ×2 (09:40→11:00)
--- NOTE | 2021-08-03 10:56 | Hospitalist Progress Note ---
Date of Service August 03, 2021 Assessment & Plan (1) Anemia: (2) Acute GI bleeding: Plan: Acute GI bleeding Patient presented by referral for evaluation of anemia, Hgb 4.6 -S/P EGD: Hiatal hernia. Single small erosion in antrum. 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 Second small nonbleeding AVM in D2, ablated, clip placed. -CT ABD:No acute abnormality is seen, in particular there is no evidence of hematoma or malignancy. -S/P 2 units PRBC GI bleed likely secondary to AVMs; iron deficiency anemia contributing as well Defer colonoscopy due to age, comorbidities--family/guardian agrees with the plan as per GI Can not rule out occult malignancy Hb: 4.6> 8.2>9.1>8.3 Appreciate GI input Continue PPI Monitor H&H Okay to resume aspirin in 3 days as per GI Hb stable Urinary tract infection Urine culture growing E. coli Continue Rocephin Day #3 Acute blood loss anemia Iron deficiency anemia Give IV Venofer Continue Iron supplements Unwitnessed fall at [facility] CT head:No acute intracranial abnormality or calvarial fracture. PT OT Fall precautions (3) Atrial fibrillation: Plan: -EKG demonstrates atrial fibrillation, heart rate has been in the low 100s -Per review of limited records, there is a questionable history of atrial fibrillation -Not a candidate for anticoagulated -carvedilol was changed to metoprolol 12.5 mg twice daily -Echo reviewed Plan to change to metoprolol succinate 25 mg daily upon discharge -Cardiology consulted, input appreciated -Severe mitral regurgitation likely contributing factor for afib (4) Chronic diastolic CHF (congestive heart failure): Plan: -Appears euvolemic -Resume diuretics (5) Fibromyalgia: (6) Alzheimers disease: (7) Depression: (8) Paranoid personality disorder: Plan: -No acute issues, continue home meds (9) DVT prophylaxis: Plan: -SCDs due to anemia, GI bleeding Admission and Anticipated Discharge Date Admission Date: July 28, 2021 Subjective Patient is seen and examined at bedside Poor historian No new complaints No bleeding issues Ate good breakfast Denies nausea, vomiting, chest pain, dyspnea, abd pain Hemoglobin stable Review of Systems Review of Systems: All systems reviewed & are unremarkable except as noted in Subjective Physical Exam Physical Exam: Physical Exam: Vitals signs as noted above General Appearance:Moderately built and nourished, no apparent distress Head: normocephalic, Atraumatic Eyes: normal inspection, EOMI Neck: supple, Trachea midline Respiratory/Chest: Normal breath sounds, CTA, No accessory muscle use Cardiovascular: Irregularly irregular, No murmur Abdomen/GI:Soft, Non tender, mild distention, Bowel sounds present Extremities/Musculoskeletal:normal inspection, no edema Neurologic/Psych: grossly no focal neurological deficits, + poor insight Skin: normal color, warm Results & Data Results & Data ([facility]) Vital Signs (Past 12 Hours) Vital Signs Temp Pulse Resp BP Pulse Ox 08/03/21 08:14 37.1 C 78 18 134/55 L 95 Laboratory Results Short CBC 08/03/21 Range/Units 06:48 Hgb 8.3 L (12.0-16.0) g/dL Hct 29.0 L (37-47) % (1) Anemia Anemia type: unspecified type Qualified Code(s): D64.9 - Anemia, unspecified
--- NOTE | 2021-08-03 11:02 | Discharge Summary ---
Date of Service August 03, 2021 Admission HPI Per Admitting Provider 86-year-old female with PMH Alzheimer's, chronic diastolic CHF, ASCVD, paranoid personality disorder, ?? History of atrial fibrillation, fibromyalgia, and other problems listed below who presents to the ED by referral for evaluation of anemia. Very limited records are available on the patient. Due to underlying Alzheimer's, history is limited from her as well. Apparently patient was found down in the hallway yesterday at [facility]. This was an unwitnessed fall. After the fall, patient reported feeling sluggish and not herself. Labs were obtained today that showed Hgb 4.6. Patient was for to the ED for further evaluation. No other symptoms or concerns reported by staff at [facility]. In the ED, patient is Hemoccult positive. She is in atrial fibrillation with heart rate in the 100s. Head CT, CT ABD/pelvis all unremarkable for acute findings. Patient was given Protonix bolus and started on a drip. She was also typed and crossed for 1 unit of blood. Admission Exam Per Admitting Provider Physical Exam Constitutional: WD/WN, vitals as above Eyes: PERRL, conjunctivae normal, anicteric sclerae ENMT: external ear and nose normal, oropharynx normal Respiratory: normal respiratory effort, lungs clear to auscultation Cardiovascular: Rate/Rhythm: + tachycardic and + irregularly irregular Vessels: normal peripheral pulses Extremities: no edema Gastrointestinal (Abdomen): normal bowel sounds, soft, nontender, no hepatosplenomegaly Musculoskeletal: no cyanosis or clubbing, extremities motor strength 5/5 Skin: no rashes, warm and dry Neurologic: PERRL, EOMI, accommodation nl, no face palsy, no dysarthria Psychiatric: Orientation: alert, oriented to person, oriented to place and cooperative; + not oriented to time Cognition: + recent memory not intact Insight: + limited insight Principal Diagnosis Acute GI bleeding Urinary tract infection Atrial fibrillation Discharge Data Allergies Allergy/AdvReac Type Severity Reaction Status Date / Time amlodipine Allergy Unknown Unverified 07/28/21 12:30 atorvastatin Allergy Unknown Unverified 07/28/21 12:30 codeine Allergy Unknown Unverified 07/28/21 12:30 nifedipine Allergy Unknown Unverified 07/28/21 12:30 Consultations 07/28/21 12:08 ED Decision to Admit Stat 07/28/21 16:27 Consult Cardiology Routine 07/28/21 16:35 Consult Gastroenterology Routine Procedures Performed Operation Date: 07/29/21 17:30 <No data on this case meets the specified criteria> Operation Date: 07/30/21 16:30 Actual Procedures p EGD Hemostasis - Phuong Payne MD Ordered Studies 07/28/21 13:22 CT abd pelvis wo con Stat CT head/brain wo con Stat 07/30/21 15:01 CT abd pelvis oral and IV con Routine Hospital Course (1) Anemia: (2) Acute GI bleeding: Acute GI bleeding Patient presented by referral for evaluation of anemia, Hgb 4.6 -S/P EGD: Hiatal hernia. Single small erosion in antrum. 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 Second small nonbleeding AVM in D2, ablated, clip placed. -CT ABD:No acute abnormality is seen, in particular there is no evidence of hematoma or malignancy. -S/P 2 units PRBC GI bleed likely secondary to AVMs; iron deficiency anemia contributing as well Defer colonoscopy due to age, comorbidities--family/guardian agrees with the plan as per GI Can not rule out occult malignancy Hb: 4.6> 8.2>9.1>8.3 Appreciate GI input Continue PPI Monitor H&H Okay to resume aspirin in 3 days as per GI Hb stable Urinary tract infection Urine culture growing E. coli Continue Rocephin Day #3 Acute blood loss anemia Iron deficiency anemia Give IV Venofer Continue Iron supplements Unwitnessed fall at [facility] CT head:No acute intracranial abnormality or calvarial fracture. PT OT Fall precautions (3) Atrial fibrillation: -EKG demonstrates atrial fibrillation, heart rate has been in the low 100s -Per review of limited records, there is a questionable history of atrial fibrillation -Not a candidate for anticoagulated -carvedilol was changed to metoprolol 12.5 mg twice daily -Echo reviewed Plan to change to metoprolol succinate 25 mg daily upon discharge -Cardiology consulted, input appreciated -Severe mitral regurgitation likely contributing factor for afib (4) Chronic diastolic CHF (congestive heart failure): -Appears euvolemic -Resume diuretics (5) Fibromyalgia: (6) Alzheimers disease: (7) Depression: (8) Paranoid personality disorder: -No acute issues, continue home meds (9) DVT prophylaxis: -SCDs due to anemia, GI bleeding Total Time Total Time Spent Total Time Spent (In Minutes): 45 minutes Discharge Plan Discharge Items Patient Disposition: Transfer [facility] Reason For Visit: ANEMIA Discharge Diagnosis: Acute GI bleeding Urinary tract infection Atrial fibrillation Activity: Per Instructions section Exercise/Sports: Gradually increase as tolerated Non-emergency contact: Primary Care Provider, E Commerce Manager and Business Unit Manager Call non-emergency contact if: you have any medication questions, your symptoms worsen, your pain is concerning for you and you have a fever Follow-up/Referrals: Josephine Santo [Primary Care Provider] - Diet: Heart Healthy Diet Texture: Easy to Chew Addtl Attending Provider Instructions: Follow-up with your primary care physician in 1 week Follow-up with your whip operator Dr. Payne in 4 to 6 weeks Follow-up with your shop steward as needed Seek immediate medical attention if your symptoms reoccur or worsen Please take all medications as instructed on discharge list below. Please call if you have any questions or problems. You can reach a [facility] hospitalist on duty at [facility] 24 hours a day by calling [phone] Pending Studies at Discharge: No Stand-Alone Forms: My [facility] Skilled Items Patient informed of condition?: Yes DNR: Yes Discharge Level of Care: Skilled Communicable Disease: No Discharge Prognosis: Stable Lines: None Urinary Catheter: No Medications and DC Order Prescriptions: New pantoprazole 40 mg Tablet,Delayed Release (Dr/Ec) 40 mg PO QAM Qty: 330 RF: 1 ferrous sulfate 325 mg (65 mg iron) Tablet,Delayed Release (Dr/Ec) 325 mg PO QAM Qty: 30 RF: 1 metoprolol succinate 25 mg tablet extended release 24 hr 25 mg PO DAILY Qty: 30 RF: 1 Continued quetiapine 25 mg tablet 25 mg PO HS RF: 0 sennosides [senna] 8.6 mg Tablet 17.2 mg PO DAILY RF: 0 citalopram 10 mg tablet 10 mg PO DAILY RF: 0 isosorbide mononitrate 30 mg tablet extended release 24 hr 30 mg PO DAILY RF: 0 aspirin 81 mg Tablet,Delayed Release (Dr/Ec) 81 mg PO DAILY RF: 0 spironolactone 25 mg tablet 12.5 mg PO HS RF: 0 isosorbide mononitrate 60 mg tablet extended release 24 hr 60 mg PO DAILY RF: 0 cyanocobalamin (vitamin B-12) [Vitamin B-12] 500 mcg Tablet 500 mcg PO DAILY RF: 0 buspirone 10 mg tablet 10 mg PO TID RF: 0 omeprazole 20 mg capsule,delayed release(DR/EC) 20 mg PO DAILY RF: 0 furosemide 20 mg tablet 20 mg PO DAILY RF: 0 rosuvastatin 10 mg tablet 10 mg PO HS RF: 0 aripiprazole 2 mg tablet 2 mg PO DAILY RF: 0 quetiapine 50 mg tablet 50 mg PO HS RF: 0 Discontinued carvedilol 6.25 mg tablet 6.25 mg PO BID RF: 0 Discharge Orders: Discharge Order (Routine); Ordered 08/03/21 Ordered By: Zurdo Parra Admission Data Admit Date/Time: 07/28/21 12:34 Attending Provider: Zurdo Parra Admit Provider: Erasto Craig Primary Care Provider: Josephine Santo Other Providers: Erasto Craig ; Gilbert Escalante ; Phuong Payne
[2021-08-03] MEDS ORDERED: SPIRONOLACTONE 12.5 MG TAB PO SCH (21:00)
== END 2021-08-03 12:04 | DRG 378 ==
LOC: ED 10:51 → SUATTDRO 12:34 → 2N 12:39 → 3N 07-31 18:20